=== PATIENT | female | born 1940 | race Hispanic/Latino ===

== ENCOUNTER 2017-09-19 14:00 | Emergency (ER) | payer MEDICARE, MEDICAID ==
--- NOTE | 2017-09-19 16:08 | RAD ---
TWO VIEWS RIGHT HIP: Comparison: None. History: Right hip pain after injury. FINDINGS: Two views right hip shows no evidence of acute fracture or dislocation. No degenerative changes are s een. Vascular calcifications are present. IMPRESSION: No evidence of acute osseous abnormality. POS: [facility]
[2017-09-19 16:24] LABS: #Lymphocytes 0.8 thou/uL (1.20-3.40); #Monocytes 0.8 thou/uL (0.11-0.59); #Neutrophils 6.4 thou/uL (1.40-6.50); %Basophils 0.3 % (0.0-1.0); %Eosinophils 0.1 % (0.0-10.0); %Lymphocytes 10.4 % (21.0-51.0); %Monocytes 10.3 % (0.0-10.0); Hematocrit 34.2 % (36.0-47.0); Mean Platelet Volume 8.4 fL (7.4-10.4); Red Blood Cell (RBC) Count 3.38 mill/uL (4.20-5.40); White Blood Cell (WBC) Count 8.1 thou/uL (4.8-10.8)
[2017-09-19 16:45] LABS: ALT (SGPT) 20 U/L (8-55); AST (SGOT) 29 U/L (5-34); Alkaline Phosphatase 98 U/L (40-150); Anion Gap 17 mmol/L (10-20); BUN (Urea Nitrogen) 40 mg/dL (9.8-20.1); Bilirubin, Total 0.9 mg/dL (0.2-1.2); Calc. Creatinine Clearance 0 mL/min (70-130); Carbon Dioxide 29 mmol/L (23-31); Chloride 94 mmol/L (98-107); Estimated GFR-MDRD 10; Globulin 4.3 g/dL (2.4-3.5); Lipase 42 U/L (8-78); Protein, Total 8.5 g/dL (6.0-8.3)
[2017-09-19] MEDS ORDERED: Ketorolac Tromethamine 30 MG/ML VIAL ONE (17:32)
== END 2017-09-19 18:01 | disposition home or self-care (01) ==
LOC: ERS 14:00
DX: M25.551 Pain in right hip (principal); E11.22 Type 2 diabetes mellitus with diabetic chronic kidney disease; I12.0 Hypertensive chronic kidney disease with stage 5 chronic kidney disease or end stage renal disease; N18.6 End stage renal disease; E78.5 Hyperlipidemia, unspecified; F32.9 Major depressive disorder, single episode, unspecified; Z99.2 Dependence on renal dialysis
CPT/HCPCS: 36415; 80053; 83690; 85025; 96372; J1885

== ENCOUNTER 2018-02-09 20:24 | Emergency (ER) | payer MEDICARE, MEDICAID ==
[2018-02-09 20:56] LABS: #Eosinphils 0.1 thou/uL (0.0-0.7); #Lymphocytes 1.1 thou/uL (1.20-3.40); #Monocytes 0.6 thou/uL (0.11-0.59); #Neutrophils 4.1 thou/uL (1.40-6.50); %Basophils 0.4 % (0.0-1.0); %Eosinophils 0.9 % (0.0-10.0); %Lymphocytes 18.1 % (21.0-51.0); %Monocytes 10.3 % (0.0-10.0); %Neutrophils 70.3 % (42.0-75.0); Hemoglobin 11.2 g/dL (12.0-16.0); Mean Corpuscular HGB CONC 32.6 g/dL (32.0-36.0); Mean Corpuscular Hemoglobin 32.4 pg (27.0-31.0); Mean Corpuscular Volume 99.3 fl (81.0-99.0); Mean Platelet Volume 8.3 fL (7.4-10.4); Platelet Count 119 thou/uL (130-400); RBC Distribution Width 14.9 % (11.5-14.5); Red Blood Cell (RBC) Count 3.47 mill/uL (4.20-5.40); White Blood Cell (WBC) Count 5.8 thou/uL (4.8-10.8)
[2018-02-09 21:16] LABS: ALT (SGPT) 17 U/L (8-55); AST (SGOT) 31 U/L (5-34); Albumin 4.1 g/dL (3.4-4.8); Alkaline Phosphatase 101 U/L (40-150); Anion Gap 17 mmol/L (10-20); BUN (Urea Nitrogen) 53 mg/dL (9.8-20.1); Calc. Creatinine Clearance 0 mL/min (70-130); Calcium 9.9 mg/dL (7.8-10.44); Carbon Dioxide 32 mmol/L (23-31); Chloride 94 mmol/L (98-107); Estimated GFR-MDRD 7; Globulin 3.8 g/dL (2.4-3.5); Glucose 155 mg/dL (83-110); Lipase 63 U/L (8-78); Potassium 4.7 mmol/L (3.5-5.1); Protein, Total 7.9 g/dL (6.0-8.3); Sodium 138 mmol/L (136-145)
[2018-02-09] MEDS ORDERED: Ondansetron ODT 4 MG TAB ONE (23:13)
[2018-02-09] MEDS ORDERED: Dicyclomine 20 MG TAB ONE (23:13)
== END 2018-02-10 00:43 | disposition home or self-care (01) ==
LOC: ERS 20:24
DX: R19.7 Diarrhea, unspecified (principal); I12.0 Hypertensive chronic kidney disease with stage 5 chronic kidney disease or end stage renal disease; N18.6 End stage renal disease; Z99.2 Dependence on renal dialysis; E11.9 Type 2 diabetes mellitus without complications; E78.5 Hyperlipidemia, unspecified; F32.9 Major depressive disorder, single episode, unspecified; Z79.899 Other long term (current) drug therapy
CPT/HCPCS: 80053; 83605; 83690; 85025; 96360; Q0162

== ENCOUNTER 2018-02-24 08:02 | Emergency (ER) | payer MEDICARE, MEDICAID ==
[~2018-02-24 08:02] MED LIST: Iopamidol 370 76% 50 ML VIAL FS ONE
[2018-02-24 08:53] LABS: #Monocytes 0.6 thou/uL (0.11-0.59); #Neutrophils 3.8 thou/uL (1.40-6.50); %Basophils 0.4 % (0.0-1.0); %Eosinophils 0.7 % (0.0-10.0); %Lymphocytes 17.7 % (21.0-51.0); %Monocytes 10.4 % (0.0-10.0); %Neutrophils 70.8 % (42.0-75.0); Hemoglobin 12.1 g/dL (12.0-16.0); Mean Corpuscular Hemoglobin 32.9 pg (27.0-31.0); Mean Corpuscular Volume 99.6 fl (81.0-99.0); Mean Platelet Volume 8.5 fL (7.4-10.4); Platelet Count 108 thou/uL (130-400); RBC Distribution Width 14.6 % (11.5-14.5); Red Blood Cell (RBC) Count 3.67 mill/uL (4.20-5.40); White Blood Cell (WBC) Count 5.4 thou/uL (4.8-10.8)
[2018-02-24 09:12] LABS: ALT (SGPT) 16 U/L (8-55); AST (SGOT) 28 U/L (5-34); Albumin 4.1 g/dL (3.4-4.8); Alkaline Phosphatase 97 U/L (40-150); Anion Gap 14 mmol/L (10-20); BUN (Urea Nitrogen) 48 mg/dL (9.8-20.1); Calc. Creatinine Clearance 0 mL/min (70-130); Calcium 9.8 mg/dL (7.8-10.44); Carbon Dioxide 32 mmol/L (23-31); Chloride 93 mmol/L (98-107); Estimated GFR-MDRD 7; Globulin 3.9 g/dL (2.4-3.5); Glucose 136 mg/dL (83-110); Potassium 5.1 mmol/L (3.5-5.1); Sodium 134 mmol/L (136-145)
--- NOTE | 2018-02-24 11:29 | CT ---
NONCONTRAST ENHANCED CT IMAGES ABDOMEN AND PELVIS: HISTORY: Abdominal pain. History of melena, hematochezia, vomiting. FINDINGS: Noncontrast-enhanced CT images of the abdomen and pelvis obtained after administration of oral contra st. Cardiomegaly is seen. Pulmonary vascular congestion is seen. A small amount of free intraperitoneal fluid is seen. The liver and spleen are unremarkable. A small hiatal hernia is seen. The gallbladder contains areas of hyperdensity compatible with numerous gallstones. There may be coral e gallbladder wall thickening. The pancreas is unremarkable. There is atrophy of both kidneys. No evidence of periaortic lymphadenopathy seen. There is some thickening and surrounding fluid surrounding the descending colon. This may represent colitis and/or diverticulitis. IMPRESSION: 1. Cholelithiasis. 2. Small amount of free intraperitoneal fluid. 3. Inflammatory change surrounding the portions of the descending colon. Differential diagnosis inc ludes colitis versus diverticulitis. POS: [facility]
[2018-02-24] MEDS ORDERED: Ciprofloxacin 500 MG TAB ONE (11:44)
[2018-02-24] MEDS ORDERED: metroNIDAZOLE 250 MG TAB ONE (11:44)
== END 2018-02-24 13:25 | disposition home or self-care (01) ==
LOC: ERS 08:02
DX: R19.7 Diarrhea, unspecified (principal); H54.7 Unspecified visual loss; E78.5 Hyperlipidemia, unspecified; I12.0 Hypertensive chronic kidney disease with stage 5 chronic kidney disease or end stage renal disease; E11.22 Type 2 diabetes mellitus with diabetic chronic kidney disease; N18.6 End stage renal disease; Z99.2 Dependence on renal dialysis; F32.9 Major depressive disorder, single episode, unspecified; Z79.84 Long term (current) use of oral hypoglycemic drugs; Z79.899 Other long term (current) drug therapy
CPT/HCPCS: 36415; 74176; 80053; 83605; 85025

== ENCOUNTER 2018-08-01 11:15 | Inpatient (IN) | payer MEDICARE, MEDICAID ==
[2018-08-01 12:19] LABS: #Lymphocytes 0.7 thou/uL (1.20-3.40); #Monocytes 0.4 thou/uL (0.11-0.59); #Neutrophils 3.6 thou/uL (1.40-6.50); %Basophils 0.3 % (0.0-1.0); %Eosinophils 0.7 % (0.0-10.0); %Lymphocytes 14.9 % (21.0-51.0); %Neutrophils 76.2 % (42.0-75.0); Hemoglobin 11.8 g/dL (12.0-16.0); Mean Corpuscular HGB CONC 31.6 g/dL (32.0-36.0); Mean Corpuscular Hemoglobin 34.2 pg (27.0-31.0); Mean Platelet Volume 10.3 fL (7.4-10.4); Platelet Count 151 thou/uL (130-400); Red Blood Cell (RBC) Count 3.45 mill/uL (4.20-5.40); White Blood Cell (WBC) Count 4.8 thou/uL (4.8-10.8)
[2018-08-01 12:39] LABS: ALT (SGPT) 12 U/L (8-55); AST (SGOT) 36 U/L (5-34); Albumin 3.9 g/dL (3.4-4.8); Alkaline Phosphatase 84 U/L (40-150); Anion Gap 17 mmol/L (10-20); Anisocytosis SLIGHT = 6-15 cells (100X) (0-5/hpf); BUN (Urea Nitrogen) 14 mg/dL (9.8-20.1); Bilirubin, Total 1.4 mg/dL (0.2-1.2); CK (CPK) 59 U/L (29-168); Calc. Creatinine Clearance 0 mL/min (70-130); Calcium 8.8 mg/dL (7.8-10.44); Carbon Dioxide 28 mmol/L (23-31); Chloride 99 mmol/L (98-107); Elliptocytes SLIGHT = 2-5 cells (100X) (0-1/hpf); Estimated GFR-MDRD 16; Glucose 169 mg/dL (83-110); MDiff Complete? YES; Ovalocytes SLIGHT = 2-5 cells (100X) (0-1/hpf); PLT Morphology Comment Appears Adequate; Poikilocytosis SLIGHT = 6-15 cells (100X) (0-5/hpf); Polychromasia SLIGHT = 2-3 cells (100X) (0-2/hpf); Potassium 4.3 mmol/L (3.5-5.1); Protein, Total 7.9 g/dL (6.0-8.3); Schistocytes SLIGHT = 2-5 cells (100X) (0-1/hpf); Sodium 140 mmol/L (136-145)
[2018-08-01 12:43] LABS: CKMB 1.5 ng/mL (0-6.6); Troponin I 0.011 ng/mL (< 0.028)
--- NOTE | 2018-08-01 13:29 | RAD ---
SINGLE VIEW OF THE CHEST: Comparison: 11-13-16 History: Difficulty breathing. FINDINGS: Single view of the chest shows an enlarged but stable cardiomediastinal silhouette. The pacemaker is unchanged in position. There is no evidence of consolidation, mass, or pleural effusion. IMPRESSION: Cardiomegaly without evidence of acute cardiopulmonary disease. POS: [facility]
--- NOTE | 2018-08-01 14:08 | PDOC.FPRHP ---
- History of Present Illness Chief Complaint: SOB History of Present Illness: Ms Sena is a 77yo female with pmh of ESRD on HD MWF, afib with pacemaker, HTN , HLD, DMII presenting with SOB that started gradually after she began receiving dialysis today. Compliance Spec is Dr Dye. Son reports they usually pull off 1.6L of fluid but last week they took off double. She has never had this SOB before. Unsure if it is worse with exertion as she has not exerted herself, denies orthopnea. Denies cough, fevers, chills, chest pain. Reports lower leg edema over the last 2 weeks that is new. She also reports abdominal bloating for the past month that she visited her PCP for and was prescribed simethicone that provided no relief. She denies abdominal pain and had a normal BM this AM. She follows up with Dr Reveles, Cardiology for her afib with pacemaker. - Allergies/Adverse Reactions Allergies Allergy/AdvReac Type Severity Reaction Status Date / Time No Known Allergies Allergy Verified 06/14/14 00:49 - Home Medications Medication Instructions Recorded Confirmed Type Calcium Acetate 667 mg PO TID-WM 03/13/14 08/01/18 History glipiZIDE [glipiZIDE ER] 2.5 mg PO QAM- 06/14/14 08/01/18 History Atorvastatin Calcium [Lipitor] 40 mg PO DAILY 05/31/15 08/01/18 History Mirtazapine 15 mg PO HS 05/31/15 08/01/18 History Ondansetron [Zofran ODT] 4 mg PO Q6H PRN #0 tab 06/01/15 08/01/18 Rx hydrALAZINE HCl [Apresoline] 50 mg PO TID #0 tab 06/01/15 08/01/18 Rx Amlodipine [Norvasc] 10 mg PO QAM 08/01/18 08/01/18 History Carvedilol [Coreg] 6.25 mg PO BID 08/01/18 08/01/18 History Folic Acid/Vit B Complex and C 1 tab PO QAM 08/01/18 08/01/18 History [Dialyvite 800] - History PMHx: ESRD on HD, HTN, HLD, DMII, Depression, Afib with pacemaker, vision impairment PSHx: C/S x2, Cataract, Fistula placement, Pacemaker placement FHx: Father- Parkinson like disease, Mother- Cancer Social: Denies tobacco, alcohol or drug use. - Review of Systems General: reports: weight/appetite/sleep changes (decreased appetite). denies: fever/chills Eyes: denies: eye pain, vision changes ENT: denies: nasal congestion, rhinorrhea Respiratory: reports: shortness of breath. denies: cough Cardiovascular: reports: edema. denies: chest pain, paroxysmal nocturnal dyspnea, orthopnea Gastrointestinal: denies: nausea, vomiting, diarrhea, constipation, abdominal pain Genitourinary: denies: dysuria Skin: denies: rashes, lesions Musculoskeletal: denies: pain, swelling Neurological: denies: numbness, weakness - Vital signs BP: 151/86 HR: 88 RR: 20 Tmax: 97.7 Pox: 98% on 2L Wt: 86.2kg - Physical Exam Constitutional: NAD, awake, alert and oriented, well developed HEENT: normocephalic and atraumatic, MMM, oropharynx clear Neck: supple, trachea midline Heart: no murmurs/rubs/gallops, pulses present (dorsalis pedis and radial 2+), other (irregular rate and rhythm) Lungs: CTAB, no wheezing Abdomen: soft, non-tender, bowel sounds present, other (distended, no fluid wave ) Musculoskeletal: normal structure Skin: no rash/lesions, capillary refill <2 seconds Psychiatric: normal mood and affect, good judgment and insight, intact recent and remote memory FMR H&P: Results - Labs Result Diagrams: 08/01/18 11:30 08/01/18 11:30 Lab results: WBC 4.8 thou/uL (4.8-10.8) 08/01/18 11:30 Hgb 11.8 g/dL (12.0-16.0) L 08/01/18 11:30 Hct 37.3 % (36.0-47.0) 08/01/18 11:30 MCV 108.0 fL (78.0-98.0) H 08/01/18 11:30 Plt Count 151 thou/uL (130-400) 08/01/18 11:30 Neutrophils % 76.2 % (42.0-75.0) H 08/01/18 11:30 Sodium 140 mmol/L (136-145) 08/01/18 11:30 Potassium 4.3 mmol/L (3.5-5.1) 08/01/18 11:30 Chloride 99 mmol/L (98-107) 08/01/18 11:30 Carbon Dioxide 28 mmol/L (23-31) 08/01/18 11:30 BUN 14 mg/dL (9.8-20.1) 08/01/18 11:30 Creatinine 2.80 mg/dL (0.6-1.1) H 08/01/18 11:30 Glucose 169 mg/dL (83-110) H 08/01/18 11:30 Calcium 8.8 mg/dL (7.8-10.44) 08/01/18 11:30 Total Bilirubin 1.4 mg/dL (0.2-1.2) H 08/01/18 11:30 AST 36 U/L (5-34) H 08/01/18 11:30 ALT 12 U/L (8-55) 08/01/18 11:30 Alkaline Phosphatase 84 U/L (40-150) 08/01/18 11:30 Creatine Kinase 59 U/L (29-168) 08/01/18 11:30 CK-MB (CK-2) 1.5 ng/mL (0-6.6) 08/01/18 11:30 B-Natriuretic Peptide 700.7 pg/mL (0-100) H 08/01/18 11:30 Serum Total Protein 7.9 g/dL (6.0-8.3) 08/01/18 11:30 Albumin 3.9 g/dL (3.4-4.8) 08/01/18 11:30 - EKG Interpretation EKG: Afib with controlled ventricular response, with no ectopics, Conduction normal, ST segments normal, T waves normal, Jackson normal, Other findings include:, prolonged QTc, low voltage QRS. - Radiology Interpretation Chest x-ray Status: report reviewed by me Additional comment: Cardiomegaly FMR H&P: A/P - Problem List (1) Afib Current Visit: Yes Status: Acute Code(s): I48.91 - UNSPECIFIED ATRIAL FIBRILLATION (2) Anemia Current Visit: No Status: Acute Code(s): D64.9 - ANEMIA, UNSPECIFIED (3) Diabetic gastroparesis Current Visit: No Status: Acute Code(s): E11.43 - TYPE 2 DIABETES W DIABETIC AUTONOMIC (POLY)NEUROPATHY; K31.84 - GASTROPARESIS (4) Hypertension Current Visit: No Status: Acute Code(s): I10 - ESSENTIAL (PRIMARY) HYPERTENSION (5) Blindness of right eye Current Visit: No Status: Chronic Code(s): H54.41 - BLINDNESS, RIGHT EYE, NORMAL VISION LEFT EYE * DO NOT USE * (6) End stage renal disease on dialysis Current Visit: No Status: Chronic Code(s): N18.6 - END STAGE RENAL DISEASE; Z99.2 - DEPENDENCE ON RENAL DIALYSIS (7) Hyperlipemia Current Visit: No Status: Chronic Code(s): E78.5 - HYPERLIPIDEMIA, UNSPECIFIED (8) Type 2 diabetes mellitus Current Visit: No Status: Chronic - Plan Shortness of Breath - DDx: Volume overloaded vs new CHF vs ACS - Heart Score: 4 - Troponin neg x1, will continue to trend - BNP elevated at 700 - Last Echo 2013, nml EF - EKG with ST segment changes - Echo ordered - Fluid restriction, daily wts, strict I&Os - Consider getting stress test, will trend troponins and repeat EKG for chest pain at this point as symptoms are more consistent with CHF than ACS - Will admit to tele for observation ESRD on HD MWF - Sees Dr Dye outpt, has been notified - Avoid nephrotoxic medications Afib with pacemaker - Rate controlled - Continue home meds - Requested records from Dr Reveles's office Hyperbilirubenima - Possibly due to hepatic congestion - Continue to trend labs Transaminitis - Possibly due to hepatic congestion - Continue to trend labs DMII - Accuchecks ACHS - Mild SSI - Hypoglycemic protocol HTN - Continue home meds HLD - Continue home meds Depression - Continue home meds Code Status: FULL DVT ppx: Heparin FMR H&P: Upper Level - Pertinent history Chris Sena is a 77 year old Female with a history of ESRD on hemodialysis MWF who presents to the ED with sudded onset dyspnea that began during dialysis this morning. Pt was bothered so much by the dyspnea that she could not finish dialysis and was directed to the emergency department. Pt's son who was present in the room states that Dr. Dye recommended that pt make an appointment with Dr. Reveles soon due to pt's lower extremity edema and abdominal swelling to rule out possible cardiac etiology. - Pertinent findings Vitals: 88% on RA on arrival to ED. Pt currently satting 100% on 2L. Physical Exam: General: alert and oriented; in no apparent distress. Heart: irregularly irregular rhythm; no murmurs, rubs, or gallops. Lungs: clear to auscultation bilaterally. no crackles, wheezes, or rhonchi. Abdomen: Normoactive bowel sounds. softly distended; tympany present; Non- tender to palpation. Extremities: bilateral lower extremities with taut edema; no pitting. - Plan Date/Time: 08/01/18 1407 I,Cira Richter, have evaluated this patient and agree with findings/plan as outlined by university internship resident. Pertinent changes/additions are listed here. Acute Dyspnea - differentials include: volume overload from ESRD vs. new diagonosis of heart failure. - last available echo from 07/2014 is normal. - BNP does not appear to be elevated from baseline. - CXR unremarkable for pulmonary congestion/effusion - will order echo, trend troponins ESRD on HD on MWF. - Dr. Dye notified. - continue hemodialysis schedule - avoid nephrotoxic medications. Abdominal bloating - On review of clinic charts, pt has had this symptoms since 2016 - possibly related to volume overload/fluid shifts from dialysis or may be related to increased bowel gas - will check echo. - consider abdominal US. - continue simethicone, will also try Bentyl. Atrial fibrillation - rate controlled. - continue to monitor. Continue home medications. - not on ASA at home, consider starting after discussing with pt and family. Hyperlipidemia - continue statin. DM - continue home medication. - last A1C in clinic 6.3% in February 2018. Well-controlled at that time. may re- check A1C outpatient.
[2018-08-01] MEDS ORDERED: Acetaminophen 325 MG TAB PO PRN (15:30)
[2018-08-01] MEDS ORDERED: Enoxaparin Sodium 30 MG/0.3 ML SYRINGE SC SCH (15:30)
[2018-08-01] MEDS ORDERED: HumaLOG 300 UNITS/3 ML VIAL SC PRN (15:30)
[2018-08-01] MEDS ORDERED: Dextrose 50% Abboject 50 ML SYRINGE SLOW IVP PRN (15:30)
[2018-08-01] MEDS ORDERED: Dextrose 5% in Water 1,000 ML IV PRN (15:30)
[2018-08-01] MEDS ORDERED: Ondansetron ODT 4 MG TAB PO PRN ×2 (15:30→17:32)
[2018-08-01 17:22] VITALS: BMI 28.5
--- NOTE | 2018-08-01 17:55 | PDOC.EVN ---
Event Note - Event Note Event Note: Case discussed with Dr. Harris and agree with history,exam, assessment and plan as documented by the resident- 77 yo male with h/o type 2 DM, ESRD on HD, chronic a-fib rate controlled, HTN, HLD presented c/o SOB that began when she was starting dialysis today. Has now improved; did complete her dialysis session. Family also notes increased lower extremity swelling and abdominal bloating for the last 2-3 weeks. Denies any fever/chills, cough, URI symptoms. No ill contacts. Denies any chest pain or orthopnea. PMH/PSH/All/Meds reviewed and agree with resident's documentation. Afebrile VSS. Exam repeated by me and agree with resident's findings. Labs: H/H = 11.7/38.3, BUN/Cr = 14/2.80, BNP= 700.7, EKG- a-fib rate controlled, CXR- cardiomegaly, no other acute findings. A /P: 1) Dyspnea/Hypoxia- on O2 to maintain saturations; possible etiologies can include new onset CHF, ACS, volume overload. Will check echo, serial cardiac enzymes. 2) Abdominal bloating- possibly secondary to volume overload; consider abdominal ultrasound. 3) ESRD- nephrology notified and will arrange for HD. 4) DM- continue accuchecks and home meds.
[2018-08-01 18:56] LABS: Troponin I 0.017 ng/mL (< 0.028)
[2018-08-01] MEDS ORDERED: Mirtazapine 15 MG TAB PO SCH (21:00)
[2018-08-01] MEDS: Dicyclomine 10 MG CAP PO SCH ×2 (21:36→21:39)
[2018-08-01] MEDS: Carvedilol 6.25 MG TAB PO SCH (21:38)
[2018-08-01] MEDS: hydrALAZINE 25 MG TAB PO SCH (21:39)
[2018-08-01] MEDS: Heparin 5,000 UNITS/ML VIAL SC SCH (21:39)
--- NOTE | 2018-08-02 00:27 | CON ---
DATE OF CONSULTATION: 08/01/2018 NEPHROLOGY CONSULTATION REASON FOR CONSULTATION: End-stage renal disease. HISTORY OF PRESENT ILLNESS: This is a 77-year-old female who had dyspnea and was noted to have short ness of breath. The patient denies any nausea, vomiting or chest pain, but is requiring oxygen, whic h she does not require. The patient is also complaining of ascites. PAST MEDICAL HISTORY: Hypertension, diabetes mellitus, anemia, congestive heart failure, coronary ar roger disease, depression, atrial fibrillation with pacemaker, cataract, fistula placement. HOME MEDICATIONS: Reviewed. HOSPITAL MEDICATIONS: Reviewed. ALLERGIES: Reviewed. REVIEW OF SYSTEMS: A 15-point review of systems was performed and was negative except for positives noted above. GENERAL: Weakness- HEAD: Headache- NECK: No swelling or lumps. NOSE: No epistaxis or discharge. EYES: No diplopia or pain. RESPIRATORY: Dyspnea- CARDIOVASCULAR: Chest pain- GASTROINTESTINAL: Nausea- /EXTERMINATOR TERMITE: Hematuria- MUSCULOSKELETAL: No joint pain. NEUROPSYCHIATIC SYSTEMS: No suicidal ideation. No ideation. SKIN: Denies any rash or ulcer. CONSTITUTIONAL: No fever or chills. PHYSICAL EXAMINATION: GENERAL: Patient is awake, alert. VITAL SIGNS: Pulse 88, breathing 16, blood pressure 151/86. HEAD/NECK: Normocephalic. Atraumatic. EYES: EOMI. No deformity. EARS: Clear. No ulcers. NOSE: Intact. No lesions. MOUTH: Clear. No discharge. THROAT: Clear. No exudate. LUNGS: Clear. No crackles. CARDIAC: S1, S2. No rub. ABDOMEN: Benign. BS+. GENITALIA/RECTUM: Jackson absent. BACK/EXTREMITIES: Edema 0+ Ulcer- NEUROLOGICAL: Alert and motor intact. SKIN: Rash- Bruise- LYMPHATICS: Edema- Ulcer- LABORATORY DATA: Show potassium is 4.3. ASSESSMENT AND RECOMMENDATIONS: 1. Stage 6 chronic kidney disease with congestive heart failure. Plan hemodialysis . 2. Hypertension, stable. 3. Anemia, stable. 4. Medications based on glomerular filtration rate are appropriate .
--- NOTE | 2018-08-02 05:51 | PDOC.FM ---
- Subjective Subjective: Ms Sena is feeling much better today. Less short of breath. Abdominal bloating has improved. She does complain of some eye pruritis and eye exudate matted on eye lids this morning. She does have hx of allergies that have been bothering her more recently. - Objective MAR Reviewed: Yes Vital Signs & Weight: Vital Signs (12 hours) Temp Pulse Resp BP Pulse Ox 08/02/18 03:59 98.8 F 69 16 98/50 L 97 08/01/18 21:39 74 08/01/18 20:30 98.1 F 69 16 133/60 98 Weight Weight 64.229 kg Result Diagrams: 08/01/18 11:30 08/02/18 04:44 <Tish Harris - Last Filed: 08/02/18 10:01> - Objective Vital Signs & Weight: Vital Signs (12 hours) Temp Pulse Resp BP BP Pulse Ox 08/02/18 08:47 75 08/02/18 08:46 75 08/02/18 08:37 98.4 F 75 14 101/49 L 97 08/02/18 03:59 98.8 F 69 16 98/50 L 97 Weight Weight 62.868 kg Result Diagrams: 08/01/18 11:30 08/02/18 04:44 <Robby Smith - Last Filed: 08/02/18 10:27> Phys Exam - Physical Examination Constitutional: NAD Mild drainage matted on upper eyelashes. Cornea clouding, b/l conjunctiviti Neck: supple Respiratory: no wheezing, clear to auscultation bilateral Cardiovascular: RRR, no significant murmur Gastrointestinal: soft, non-tender, positive bowel sounds Musculoskeletal: edema present Psychiatric: normal affect, A&O x 3 Skin: cap refill <2 seconds <Tish Harris - Last Filed: 08/02/18 10:01> Dx/Plan (1) Afib Code(s): I48.91 - UNSPECIFIED ATRIAL FIBRILLATION Status: Acute (2) Anemia Code(s): D64.9 - ANEMIA, UNSPECIFIED Status: Acute (3) Diabetic gastroparesis Code(s): E11.43 - TYPE 2 DIABETES W DIABETIC AUTONOMIC (POLY)NEUROPATHY; K31.84 - GASTROPARESIS Status: Acute (4) Hypertension Code(s): I10 - ESSENTIAL (PRIMARY) HYPERTENSION Status: Acute (5) Blindness of right eye Code(s): H54.41 - BLINDNESS, RIGHT EYE, NORMAL VISION LEFT EYE * DO NOT USE * Status: Chronic (6) End stage renal disease on dialysis Code(s): N18.6 - END STAGE RENAL DISEASE; Z99.2 - DEPENDENCE ON RENAL DIALYSIS Status: Chronic (7) Hyperlipemia Code(s): E78.5 - HYPERLIPIDEMIA, UNSPECIFIED Status: Chronic (8) Type 2 diabetes mellitus Status: Chronic - Plan Plan: Shortness of Breath - DDx: Volume overloaded 2/2 ESRD vs new CHF - Troponin neg x2, CKMB neg - BNP elevated at 700 - Last Echo 2013, nml EF - EKG with ST segment changes - Fluid restriction, daily wts, strict I&Os - Echo today - Consider getting stress test, will trend troponins and repeat EKG for chest pain at this point as symptoms are more consistent with CHF than ACS Conjunctivitis - Likely allergic - Will add Flonase ESRD on HD MWF - Sees Dr Dye outpt, has been notified - Avoid nephrotoxic medications Afib with pacemaker - Rate controlled - Continue home meds - Requested records from Dr Reveles's office Hyperbilirubenima - Possibly due to hepatic congestion - Continue to trend labs Transaminitis - Possibly due to hepatic congestion - Continue to trend labs DMII - Accuchecks ACHS - Mild SSI - Hypoglycemic protocol HTN - Continue home meds HLD - Continue home meds Depression - Continue home meds Code Status: FULL DVT ppx: Heparin <Tish Harris - Last Filed: 08/02/18 10:01> Attending Addendum - Attending Addendum Date/Time: 08/02/18 1026 I personally evaluated the patient and discussed the management with Dr. Harris. I agree with the History, Examination, Assessment and Plan documented above with any addition or exceptions noted below. Patient feeling improved today. Less short of breath. Awaiting Echo to be completed. No plans for HD until Saturday unless her clinical progression changes. Will re-eval this afternoon but may be stable for discharge if ambulating well and not requiring supplemental O2. <Robby Smiht - Last Filed: 08/02/18 10:27>
[2018-08-02 06:08] LABS: ALT (SGPT) 10 U/L (8-55); AST (SGOT) 25 U/L (5-34); Albumin 3.4 g/dL (3.4-4.8); Alkaline Phosphatase 68 U/L (40-150); Anion Gap 13 mmol/L (10-20); BUN (Urea Nitrogen) 16 mg/dL (9.8-20.1); Bilirubin, Total 0.9 mg/dL (0.2-1.2); Calc. Creatinine Clearance 17 mL/min (70-130); Calcium 8.7 mg/dL (7.8-10.44); Carbon Dioxide 29 mmol/L (23-31); Chloride 100 mmol/L (98-107); Estimated GFR-MDRD 16; Globulin 3.6 g/dL (2.4-3.5); Glucose 107 mg/dL (83-110); Sodium 138 mmol/L (136-145)
[2018-08-02] MEDS ORDERED: Fluticasone Propionate Nasal Spray 16 gm Bottle NASAL PRN (07:42)
[2018-08-02] MEDS: Calcium Acetate 667 MG CAP PO SCH ×2 (08:46→12:21)
[2018-08-02] MEDS: Heparin 5,000 UNITS/ML VIAL SC SCH ×2 (08:46→15:52)
[2018-08-02] MEDS: hydrALAZINE 25 MG TAB PO SCH ×3 (08:46→15:52)
[2018-08-02] MEDS: Dicyclomine 10 MG CAP PO SCH ×2 (08:47→12:22)
[2018-08-02] MEDS: Amlodipine 10 MG TAB PO SCH ×2 (08:47→11:17)
[2018-08-02] MEDS: Carvedilol 6.25 MG TAB PO SCH (08:48)
[2018-08-02] MEDS ORDERED: Folic Acid/Vit B Comp W-C PO SCH (09:00)
[2018-08-02] MEDS ORDERED: Atorvastatin Calcium 40 MG TAB PO SCH (09:00)
[2018-08-02] MEDS ORDERED: Fluticasone Propionate Nasal Spray 16 gm Bottle NASAL SCH (09:00)
--- NOTE | 2018-08-02 11:53 | PRG ---
DATE OF SERVICE: 08/02/2018 SUBJECTIVE: This is a 77-year-old female being seen for end-stage renal disease. Patient denies any nausea, vomiting or chest pain. PHYSICAL EXAMINATION: GENERAL: Patient is awake, alert. VITAL SIGNS: Afebrile, pulse 75, breathing 16, blood pressure 98/56. HEAD/NECK: Normocephalic. Atraumatic. EYES: EOMI. No deformity. EARS: Clear. No ulcers. NOSE: Intact. No lesions. MOUTH: Clear. No discharge. THROAT: Clear. No exudate. LUNGS: Clear. No crackles. CARDIAC: S1, S2. No rub. ABDOMEN: Benign. BS+. GENITALIA/RECTUM: Jackson absent. BACK/EXTREMITIES: Edema 0+ Ulcer- NEUROLOGICAL: Alert and motor intact. SKIN: Rash- Bruise- LYMPHATICS: Edema- Ulcer- LABORATORY DATA: None. ASSESSMENT AND RECOMMENDATIONS: 1. Stage 6 chronic kidney disease, continue hemodialysis. 2. Hypertension, stable. Can decrease the hydralazine. Medications based on GFR are appropriate.
[2018-08-02 16:23] VITALS: BP 103/50; TEMP 97.6
--- NOTE | 2018-08-03 02:14 | DIS-2 ---
DATE OF ADMISSION: 08/01/2018 DATE OF DISCHARGE: 08/02/2018 RESIDENT: Tish Harris M.D. ADMITTING ATTENDING: Leidy Biggs M.D. DISCHARGE ATTENDING: Robby Smith M.D. CONSULTATIONS: None. PROCEDURES: 1. Chest x-ray: Cardiomegaly without evidence of acute cardiopulmonary disease. 2. Echocardiogram, ejection fraction 50%-55%, left atrium mildly dilated. Mitral annular calcification. Moderate mitral regurgitation. Moderate to severe tricuspid regurgitation. PRIMARY DIAGNOSES: 1. 2. End-stage renal disease. SECONDARY DIAGNOSES: 1. Allergic conjunctivitis. 2. End-stage renal disease on hemodialysis. 3. Atrial fibrillation with pacemaker. 4. Hyperbilirubinemia. 5. Transaminitis. 6. Type 2 diabetes. 7. Hypertension. 8. Hyperlipidemia. 9. Depression. DISCHARGE MEDICATIONS: 1. Calcium acetate 667 mg p.o. t.i.d. 2. Glipizide 2.5 mg q.a.m. 3. Mirtazapine 15 mg at bedtime. 4. Atorvastatin 40 mg daily. 5. Zofran 4 mg q.6 hours p.r.n. 6. Hydralazine 50 mg t.i.d. 7. Amlodipine 10 mg q.a.m. 8. Carvedilol 6.25 mg b.i.d. 9. Folic acid, vitamin B and C one tab q.a.m. 10. Bentyl 10 mg q.i.d. 11. Fluticasone 2 sprays nasally daily. DISCONTINUED MEDICATIONS: None. HISTORY OF PRESENT ILLNESS AND HOSPITAL COURSE: Ms. Sena is a 77-year-old female with past medical history of end-stage renal disease, on hemodialysis Saturday, Saturday, Saturday; atrial fibrillation with pacemaker; hypertension; hyperlipidemia; type 2 diabetes who presented with shortness of breath that began gradually after she started receiving dialysis. It is estimated that about 3 liters was pulled off a day per son. She has never had the shortness of breath before. Her BNP was 700.7. Troponin was negative. Echocardiogram was performed showing 50%-55% EF and moderate to severe tricuspid regurgitation. She was also noted to be hypoxic into the mid 80s at presentation, this resolved with 2 liters oxygen nasal cannula. She was weaned off the oxygen and was satting in the mid 90s that discharge. The patient complained of conjunctivitis. She has a history of allergies that have been worse over the past few weeks. Flonase was added to her medications. Her end-stage renal disease, on hemodialysis Saturday, Saturday, Saturday, is managed by Dr. Dye outpatient. He was notified the patient was hospitalized. The patient has atrial fibrillation with pacemaker placement. She was rate controlled throughout her hospitalization. Dr. Reveles, her application support engineer, was notified and she was continued on her home medications and stable. She was noted to have a mild hyperbilirubinemia, initially 36 down trended to 25 at discharge and an elevated bilirubin of 1.4 down trended to 0.9 at discharge. This could likely, it was possibly due to hepatic congestion. Her type 2 diabetes was stable throughout the hospitalization on medication. Although, patient is 77 years old and is at risk for hypoglycemia and other side effects on a sulfonylurea. The patient's other chronic medical conditions of hypertension, hyperlipidemia, and depression were managed with home medications. DISPOSITION: Stable. DISCHARGE INSTRUCTIONS: 1. Location: Home. 2. Diet: Heart healthy, consistent carbohydrates. 3. Activity: No restrictions. 4. Followup: Follow up with PCP within 3-7 days. SVETLANA
== END 2018-08-02 16:55 | disposition home or self-care (01) | DRG 291 ==
LOC: ERS 11:15 → 2NO 14:23
PROVIDERS: ADMIT Student in an Organized Health Care Education/Training Program; ATTEND Student in an Organized Health Care Education/Training Program
PROC: 5A1D70Z Performance of Urinary Filtration, Intermittent, Less than 6 Hours Per Day (ICD-10-PCS; principal; 2018-08-01)
DX: I13.2 Hypertensive heart and chronic kidney disease with heart failure and with stage 5 chronic kidney disease, or end stage renal disease (principal); N18.6 End stage renal disease; E11.22 Type 2 diabetes mellitus with diabetic chronic kidney disease; I50.9 Heart failure, unspecified; E11.43 Type 2 diabetes mellitus with diabetic autonomic (poly)neuropathy; K31.84 Gastroparesis; D63.1 Anemia in chronic kidney disease; E78.5 Hyperlipidemia, unspecified; I48.91 Unspecified atrial fibrillation; H54.61 Unqualified visual loss, right eye, normal vision left eye; Z99.2 Dependence on renal dialysis; F32.9 Major depressive disorder, single episode, unspecified; R74.0 Nonspecific elevation of levels of transaminase and lactic acid dehydrogenase [LDH]; H10.10 Acute atopic conjunctivitis, unspecified eye; I08.1 Rheumatic disorders of both mitral and tricuspid valves
CPT/HCPCS: 36415; 36416; 71045; 80053; 82550; 82553; 83880; 84484; 85025; 93005; 93306; J1644

== ENCOUNTER 2018-09-15 11:34 | Emergency (ER) | payer MEDICARE, MEDICAID ==
[2018-09-15 12:52] LABS: #Lymphocytes 0.8 thou/uL (1.20-3.40); #Monocytes 0.6 thou/uL (0.11-0.59); #Neutrophils 4.5 thou/uL (1.40-6.50); %Basophils 0.4 % (0.0-1.0); %Eosinophils 0.3 % (0.0-10.0); %Lymphocytes 13.4 % (21.0-51.0); %Monocytes 10.3 % (0.0-10.0); %Neutrophils 75.5 % (42.0-75.0); Hemoglobin 11.7 g/dL (12.0-16.0); Mean Corpuscular HGB CONC 32.4 g/dL (32.0-36.0); Mean Corpuscular Hemoglobin 34.7 pg (27.0-31.0); Mean Platelet Volume 8.4 fL (7.4-10.4); Platelet Count 181 thou/uL (130-400); RBC Distribution Width 14.2 % (11.5-14.5); Red Blood Cell (RBC) Count 3.36 mill/uL (4.20-5.40)
[2018-09-15 13:14] LABS: ALT (SGPT) 10 U/L (8-55); AST (SGOT) 25 U/L (5-34); Albumin 3.5 g/dL (3.4-4.8); Alkaline Phosphatase 79 U/L (40-150); Anion Gap 18 mmol/L (10-20); BUN (Urea Nitrogen) 32 mg/dL (9.8-20.1); Bilirubin, Total 1.1 mg/dL (0.2-1.2); Calc. Creatinine Clearance 0 mL/min (70-130); Calcium 9.6 mg/dL (7.8-10.44); Carbon Dioxide 30 mmol/L (23-31); Chloride 95 mmol/L (98-107); Estimated GFR-MDRD 8; Globulin 4.2 g/dL (2.4-3.5); Glucose 146 mg/dL (83-110); Lipase 57 U/L (8-78); Potassium 5.6 mmol/L (3.5-5.1); Protein, Total 7.7 g/dL (6.0-8.3); Sodium 137 mmol/L (136-145)
[2018-09-15] MEDS ORDERED: Ondansetron PF 4 MG/2 ML Vial ONE (16:05)
--- NOTE | 2018-09-15 16:35 | ULT ---
LEFT UPPER EXTREMITY VASCULAR ULTRASOUND: Date: 09/15/18 INDICATION: History of left upper extremity shunt/fistula. Evaluate for patency & flow. TECHNIQUE: Birch scale and Doppler color flow imaging performed. FINDINGS: The region of patient's vascular shunt/fistula of the left upper extremity reveals flow. Venous and a rterial waveforms are documented. This is labeled as a location within the cephalic, brachial region. IMPRESSION: The interrogated site of fistula does reveal presence of flow with arterial and venous waveforms. POS: C
--- NOTE | 2018-09-17 15:11 | EKG ---
Test Reason : Blood Pressure : / mmHG Vent. Rate : 094 BPM Atrial Rate : 088 BPM P-R Int : 000 ms QRS Dur : 080 ms QT Int : 370 ms P-R-T Axes : 000 091 189 degrees QTc Int : 462 ms Atrial fibrillation Rightward axis Nonspecific ST and T wave abnormality Abnormal ECG Confirmed by MERE BLANCA ([id number]), state editor TODD MEREDITH ([id number]) on 09/17/2018 3:11:38 PM Referred By: Confirmed By:MERE BLANCA
== END 2018-09-15 16:37 | disposition home or self-care (01) ==
LOC: ERS 11:34
DX: E87.5 Hyperkalemia (principal); E11.22 Type 2 diabetes mellitus with diabetic chronic kidney disease; N18.6 End stage renal disease; E78.5 Hyperlipidemia, unspecified; I12.0 Hypertensive chronic kidney disease with stage 5 chronic kidney disease or end stage renal disease; I20.9 Angina pectoris, unspecified; Z87.01 Personal history of pneumonia (recurrent); F32.9 Major depressive disorder, single episode, unspecified; Z79.891 Long term (current) use of opiate analgesic; Z79.899 Other long term (current) drug therapy
CPT/HCPCS: 36415; 80053; 82550; 83690; 84484; 85025; 93005; 96374; J2405

== ENCOUNTER 2019-01-15 08:55 | Observation (INO) | payer MEDICARE, MEDICAID ==
[2019-01-15] MEDS ORDERED: Ondansetron PF 4 MG/2 ML Vial ONE (09:27)
[2019-01-15 10:15] LABS: INR-International Normal Ratio 1.2; Prothrombin Time 14.8 SEC (12.0-14.7)
[2019-01-15 10:24] LABS: #Lymphocytes 0.9 thou/uL (1.20-3.40); #Monocytes 0.5 thou/uL (0.11-0.59); #Neutrophils 2.8 thou/uL (1.40-6.50); %Basophils 0.8 % (0.0-1.0); %Eosinophils 0.5 % (0.0-10.0); %Lymphocytes 21.3 % (21.0-51.0); %Neutrophils 65.5 % (42.0-75.0); Hemoglobin 11.3 g/dL (12.0-16.0); Mean Corpuscular HGB CONC 31.3 g/dL (32.0-36.0); Mean Corpuscular Hemoglobin 33.7 pg (27.0-31.0); Mean Platelet Volume 8.8 fL (7.4-10.4); Platelet Count 159 thou/uL (130-400); Red Blood Cell (RBC) Count 3.36 mill/uL (4.20-5.40); White Blood Cell (WBC) Count 4.3 thou/uL (4.8-10.8)
[2019-01-15 10:33] LABS: MDiff Complete? YES; Microcytosis SLIGHT = 6-15 cells (100X) (0-5/hpf); Ovalocytes SLIGHT = 2-5 cells (100X) (0-1/hpf); Platelet Morphology Comment Appears Adequate; Polychromasia SLIGHT = 2-3 cells (100X) (0-2/hpf)
[2019-01-15 10:34] LABS: ALT (SGPT) 10 U/L (8-55); AST (SGOT) 21 U/L (5-34); Albumin 3.4 g/dL (3.4-4.8); Alkaline Phosphatase 53 U/L (40-150); Anion Gap 15 mmol/L (10-20); BUN (Urea Nitrogen) 17 mg/dL (9.8-20.1); Bilirubin, Total 0.7 mg/dL (0.2-1.2); Calc. Creatinine Clearance 0 mL/min (70-130); Calcium 9.2 mg/dL (7.8-10.44); Carbon Dioxide 31 mmol/L (23-31); Chloride 95 mmol/L (98-107); Estimated GFR-MDRD 14; Globulin 4.1 g/dL (2.4-3.5); Glucose 171 mg/dL (83-110); Lipase 41 U/L (8-78); Potassium 3.7 mmol/L (3.5-5.1); Protein, Total 7.5 g/dL (6.0-8.3); Sodium 137 mmol/L (136-145)
[2019-01-15 10:42] LABS: Bilirubin Small (Negative); Blood, Urine Moderate (Negative); Clarity TURBID (Clear); Glucose, Urine (Dipstick) 100 mg/dL (Negative); Leukocyte Large (Negative); Nitrite Positive (Negative); Protein, Urine (Dipstick) 300 mg/dL (Neg-Trace); Specific Gravity, Urine 1.023 (1.002-1.036); Urobilinogen 0.2 mg/dL (0.2-1.0)
[2019-01-15 10:44] LABS: Bacteria/HPF None Seen HPF (None Seen)
[2019-01-15 10:45] LABS: Pathc Cast-AUWi Flag 46.51 (0-2.49); Yeast-AUWi Flag 546.5 (0-25.0)
--- NOTE | 2019-01-15 10:59 | CT ---
Contrast-enhanced images abdomen and pelvis. HISTORY: 78-year-old with history of abdominal pain. Comparison made to previous exam from 02/24/2018. Areas of consolidation seen in the lingula compatible with areas of pneumonia. Extensive coronary artery vascular calcifications seen. There is interval development of a large collection of free intraperitoneal fluid. No evidence of free intraperitoneal air seen. The liver and spleen are unremarkable. There is reflux of injected contrast into the portal veins compatible with right heart failure. Extensive cholelithiasis is present. The small bowel and colon demonstrate no significant distention. Moderate amount stool seen in the co sebas. Atherosclerotic calcific effusion seen in the abdominal aorta. The pancreas is unremarkable. IMPRESSION: 1. Interval development of large amount of ascites. 2: Cholelithiasis.
[2019-01-15 11:01] LABS: Hyaline Casts/LPF 0-3 HYALINE CAST LPF (0-3 Hyaline); Renal Epithelial 0-3 HPF (0-3); Transitional Epithelial 0-3 HPF (0-3); WBC/HPF 21-50 HPF (0-3); Yeast-All Forms None Seen HPF (None Seen)
[2019-01-15] MEDS ORDERED: ISOVUE-370 76%-LOCM 1 ML ONE (13:54)
[2019-01-15] MEDS ORDERED: Ondansetron PF 4 MG/2 ML Vial IVP PRN (15:29)
[2019-01-15] MEDS ORDERED: Ondansetron ODT 4 MG TAB SL PRN (15:29)
[2019-01-15 16:18] VITALS: BMI 23.1
--- NOTE | 2019-01-15 16:28 | PDOC.EVN ---
Addendum - Attending - Attending Attestation Date/Time: 01/15/19 6792 I personally evaluated the patient and discussed the management with Dr. Hamilton/ Enzo I agree with the History, Examination, Assessment and Plan documented by science intern and resident in separate document. 78 yo Hemodialysis patient with new onset ascites. Patient denies fever chills she is becoming uncomfortable with fluid collection need to consider broad differential Liver,Cardiac, renal, infectious and malignant etiologies. Patient for diagnostic paracentesis and will consult GI in am if needed for further consideration. Dr Rich Wood Heel Flap Inserter is aware of her admission and will ask to follow along for inpatient HD etc. initial evaluation normal INR and LFT no evidence intra-abdominal thrombotic events will cover for SBP s/p paracentesis. Patient and son counseled to care plan.
[2019-01-15 16:49] LABS: BF Color Yellow; BF RBC Count - Manual 11 /cumm; BF WBC/Nonhematics Ct. - Manua 75 /cumm; Body Fluid Source Ascites Body Fluid; Clarity Hazy (Clear); Tube # EDTA
[2019-01-15] MEDS ORDERED: Ondansetron ODT 4 MG TAB PO PRN (16:58)
[2019-01-15] MEDS ORDERED: Acetaminophen 325 MG TAB PO PRN (17:02)
[2019-01-15] MEDS ORDERED: Prevnar 13-Val Conj/PF 0.5 ML SYRINGE IM ONE (17:15)
[2019-01-15 17:18] LABS: BF Segmented Neutrophils 1 %; Cell Count Non Hematic 62 %; Lymphocytes 37 %
--- NOTE | 2019-01-15 17:20 | PDOC.FPRHP ---
- History of Present Illness Chief Complaint: abdominal distention History of Present Illness: 78 yo F with PMH ESRD on HD MWF presents for increasing abdominal distention. Son notes that this distention as well as LE edema has been increasing for past 3-4 months. Patient's treasury assistant suggested cardiology referral and patient had appt scheduled for February 10. Last night patient had increased bloating along with N/V prompting her to come in. Patient lives in home with consistent family members caring for her. Ambulates with walker. ED Course: 1L, zofran - Allergies/Adverse Reactions Allergies Allergy/AdvReac Type Severity Reaction Status Date / Time No Known Allergies Allergy Verified 01/15/19 15:54 - Home Medications Medication Instructions Recorded Confirmed Type Calcium Acetate 3 tab PO TID-WM 03/13/14 01/15/19 History Atorvastatin Calcium [Lipitor] 40 mg PO DAILY 05/31/15 01/15/19 History Mirtazapine 15 mg PO HS 05/31/15 01/15/19 History Ondansetron [Zofran ODT] 4 mg PO Q6H PRN #0 tab 06/01/15 01/15/19 Rx hydrALAZINE HCl [Apresoline] 50 mg PO TID #0 tab 06/01/15 01/15/19 Rx Amlodipine [Norvasc] 10 mg PO QAM 08/01/18 01/15/19 History Carvedilol [Coreg] 6.25 mg PO BID 08/01/18 01/15/19 History Metoclopramide HCl [Metoclopramide 2.5 mg PO DAILY 01/15/19 01/15/19 History HCl Odt] - History PMHx: ESRD on HD MWF, angina, afib with pacemaker, blindness, HTN, HLD, DM2 PSHx: x2, cataract, dialysis shunt L arm, pacemaker FHx: unknown Social: No tobacco, alcohol, drug use. - Review of Systems General: denies: fever/chills Respiratory: denies: cough, shortness of breath Cardiovascular: denies: chest pain, palpitation Gastrointestinal: reports: nausea, vomiting, other (abdominal distention). denies: diarrhea Skin: denies: rashes Musculoskeletal: reports: swelling. denies: pain - Vital signs BP: 107/55 HR: 69 RR: 16 Tmax: 97.4 Pox: 94% on RA Wt: 55 kg - Physical Exam Constitutional: NAD HEENT: normocephalic and atraumatic, other (blindness) Neck: trachea midline Heart: RRR, normal S1/S2, other (systolic ejection murmur heard best at left sternal border) Lungs: CTAB, no respiratory distress Abdomen: non-tender, bowel sounds present, other (distended) Musculoskeletal: normal structure Neurological: no focal deficit Skin: no rash/lesions FMR H&P: Results - Labs Result Diagrams: 01/16/19 04:35 01/16/19 04:35 Lab results: WBC 4.3 thou/uL (4.8-10.8) L 01/15/19 10:01 Hgb 11.3 g/dL (12.0-16.0) L 01/15/19 10:01 Hct 36.2 % (36.0-47.0) 01/15/19 10:01 MCV 108.0 fL (78.0-98.0) H 01/15/19 10:01 Plt Count 159 thou/uL (130-400) 01/15/19 10:01 Neutrophils % 65.5 % (42.0-75.0) 01/15/19 10:01 Sodium 137 mmol/L (136-145) 01/15/19 10:01 Potassium 3.7 mmol/L (3.5-5.1) 01/15/19 10:01 Chloride 95 mmol/L (98-107) L 01/15/19 10:01 Carbon Dioxide 31 mmol/L (23-31) 01/15/19 10:01 BUN 17 mg/dL (9.8-20.1) 01/15/19 10:01 Creatinine 3.25 mg/dL (0.6-1.1) H 01/15/19 10:01 Glucose 171 mg/dL (83-110) H 01/15/19 10:01 Calcium 9.2 mg/dL (7.8-10.44) 01/15/19 10:01 Total Bilirubin 0.7 mg/dL (0.2-1.2) 01/15/19 10:01 AST 21 U/L (5-34) 01/15/19 10:01 ALT 10 U/L (8-55) 01/15/19 10:01 Alkaline Phosphatase 53 U/L (40-150) 01/15/19 10:01 B-Natriuretic Peptide 1188.3 pg/mL (0-100) H 01/15/19 16:14 Serum Total Protein 7.5 g/dL (6.0-8.3) 01/15/19 10:01 Albumin 3.4 g/dL (3.4-4.8) 01/15/19 10:01 Lipase 41 U/L (8-78) 01/15/19 10:01 Urine Ketones Trace mg/dL (Negative) H 01/15/19 10:29 Urine Blood Moderate (Negative) H 01/15/19 10:29 Urine Nitrite Positive (Negative) H 01/15/19 10:29 Ur Leukocyte Esterase Large (Negative) H 01/15/19 10:29 Urine RBC 7-10 HPF (0-3) H 01/15/19 10:29 Urine WBC 21-50 HPF (0-3) H 01/15/19 10:29 Ur Squamous Epith Cells 4-6 HPF (0-3) H 01/15/19 10:29 Urine Bacteria None Seen HPF (None Seen) 01/15/19 10:29 FMR H&P: A/P - Problem List (1) Ascites Current Visit: Yes Status: Acute Code(s): R18.8 - OTHER ASCITES (2) UTI (urinary tract infection) Current Visit: Yes Status: Acute (3) Blindness Current Visit: Yes Status: Chronic Code(s): H54.7 - UNSPECIFIED VISUAL LOSS (4) Afib Current Visit: Yes Status: Chronic Code(s): I48.91 - UNSPECIFIED ATRIAL FIBRILLATION (5) Anemia Current Visit: Yes Status: Chronic Code(s): D64.9 - ANEMIA, UNSPECIFIED (6) Diabetic gastroparesis Current Visit: Yes Status: Chronic Code(s): E11.43 - TYPE 2 DIABETES W DIABETIC AUTONOMIC (POLY)NEUROPATHY; K31.84 - GASTROPARESIS (7) Hypertension Current Visit: Yes Status: Chronic Code(s): I10 - ESSENTIAL (PRIMARY) HYPERTENSION (8) End stage renal disease on dialysis Current Visit: Yes Status: Chronic Code(s): N18.6 - END STAGE RENAL DISEASE ; Z99.2 - DEPENDENCE ON RENAL DIALYSIS (9) Hyperlipemia Current Visit: Yes Status: Chronic Code(s): E78.5 - HYPERLIPIDEMIA, UNSPECIFIED (10) Type 2 diabetes mellitus Current Visit: Yes Status: Chronic - Plan New onset ascitis - Ddx includes CHF, malignancy, hepatic etiology, infection - Paracentesis performed in ED 01/15, 1.7 L removed. Labs from this pending. - BNP 1188. Last echo 08/02/18 showed EF 50-55%. Pending echo. At this time CHF seems like more likely cause. - Liver enzymes normal, INR 1.2. UTI - UA with pos nitrites, large leuk esterase, high WBC, high RBC - urine culture pending - Continue ceftriaxone (01/15) ESRD on HD MWF - consulted nephrology Macrocytic anemia, chronic - Hgb at baseline though noted to be increasingly more macrocytic compared to prior - will check B12 and folate DM2 - not on any home medications reported - will check A1c HTN - continue home BP meds HLD - continue home statin A fib with pacemaker - will get pacemaker interrogation, patient feels it is out of place Diet: CC/Renal Ppx: Heparin Dispo: admit to medical for observation PCP: Dr. Taylor at [facility] Patient seen with Dr. Marmolejo FMR H&P: Upper Level - Pertinent history 78 yo female here for abdominal swelling starting last night. Assoc vomiting, non-bilious, non-bloody. Also has decreased appetite. Patient lives with granddaughter who is not in the room. Pts son is in room to provide history. Pt has history of ESRD on HD, last session was yesterday. No complications after dialysis. Pt denies hx of EtOH use, hepatitis. - Pertinent findings VSS Lipase: 41 Albumin: 3.4 TotalProtein: 7.5 AST/ALT: / ALKPhos: 53 K: 3.7 WBC: 4.3 Cr: 3.25 Ca: 9.2 INR: 1.2 103/63 HR: 74 96% on RA RR: 11 CTAbd: interval development of large amount of ascites; cholelithiasis GEN: NAD ENT: bilateral blindness CARD: RRR, DIEGO PULM: CTAB ABD: distended but not taught; no spider angiomata, no fluid wave; TTP below the diaphragm b/l with no radiation, non-TTP in RUQ EXT: trace edema, pt notes it is TTP of [place] - Plan Date/Time: 01/15/19 1720 I, Amarjit Miramontes DO, have evaluated this patient and agree with findings/plan as outlined by internal affairs commander resident. Pertinent changes/additions are listed here. #new ascites -labs unremarkable -will get diagnostic paracentesis with cytology, cell count, LDH, albumin, AFB, protein, gram stain and culture -hepatitis panel -start rocephin 2/2 concern for SBP -BNP 1188, last ECHO 07/2018 EF 50-55% -suspect HF is source of ascites #ESRD on HD -Consult Hardik/Hilario #possible UTI -urine cultures pending -though squam epith cells seen on UA -rocephin will cover #HTN #HLD #Afib with pacemaker #DMII Addendum - Attending - Attending Attestation Date/Time: 01/16/19 1358 I personally evaluated the patient and discussed the management with Drs. Miramontes /Enzo I agree with the History, Examination, Assessment and Plan documented above with any addition or exceptions noted below. Patient seen in HD today not able to take off any fluid secondary low BP. Patient denies any CP, SOB or abdominal pain today. Note elevated BNP, HX A Fib s/p pacemaker. Concern ascites factors renal and cardiac HF rec consider Cardiology consultation . Continue Rocephin pending urine C&S. Overall patient stable. Noted results cholelithiasis, and macrocytic anemia in patient with ESRD. Echocardiogram ordered. Need to consider SAAG r/o portal HTN no history hepatic disease.
[2019-01-15] MEDS: Calcium Acetate 667 MG CAP PO SCH (17:41)
[2019-01-15] MEDS: Metoclopramide HCl 10 MG TAB PO SCH ×2 (17:42→20:56)
[2019-01-15] MEDS: Heparin 5,000 UNITS/ML VIAL SC SCH ×2 (17:42→21:01)
[2019-01-15] MEDS: cefTRIAXone\\ROCEPHIN 2 GM in Sodium Chloride 0.9% 100 ML IVPB SCH (17:43)
--- NOTE | 2019-01-15 18:56 | PDOC.EVN ---
Event Note - Event Note Event Note: INDICATION: new ascites PROCEDURE HOLLOW HANDLE BENCH WORKER: Janey Giraldo DO ATTENDING PHYSICIAN: Dr. Marmolejo Ultrasound used to ismael location: Yes CONSENT: Consent was obtained from patient and son (signed form as patient is blind) prior to the procedure. Indications, risks, and benefits were explained at length. PROCEDURE SUMMARY: A time-out was performed. My hands were washed immediately prior to the procedure. I wore a surgical cap, mask with protective eyewear, sterile gown and sterile gloves throughout the procedure. The area was cleansed and draped in usual sterile fashion using chlorhexidine scrub. Anesthesia was achieved with 1% lidocaine. The LLQ of the abdomen was prepped and draped in a sterile fashion using chlorhexidine scrub. 1% lidocaine was used to numb the skin, soft tissue and peritoneum. The paracentesis catheter was inserted and advanced with negative pressure until straw colored fluid was aspirated. Approximately 60 mL of ascitic fluid was collected and sent for laboratory analysis. The catheter was then connected to the vaccutainer and 1.1 liters of additional ascitic fluid were drained. The catheter was removed and no leaking was noted. A bandaid was placed over the puncture wound. The patient tolerated the procedure well without any immediate complications. Addendum - Attending - Attending Attestation Date/Time: 01/15/19 9150 I personally evaluated the patient and discussed the management with Dr. Giraldo I was present and supervised the paracentesis no complications patient tolerated the procedure well.
[2019-01-15] MEDS: Carvedilol 6.25 MG TAB PO SCH (20:57)
[2019-01-15] MEDS ORDERED: Mirtazapine 15 MG TAB PO SCH (21:00)
--- NOTE | 2019-01-16 00:10 | CON ---
DATE OF CONSULTATION: 01/15/2019 CONSULTING PHYSICIAN: Dr. Garrison. REASON FOR CONSULT: End-stage renal disease evaluation. REASON FOR ADMISSION: Vomiting. HISTORY OF PRESENT ILLNESS: An 78-year-old female with history of end-stage renal disease, on hemodialysis, coronary disease, type 2 diabetes, hypertension, came to the hospital with vomiting, was found to have ascites and has been admitted for further evaluation. The patient gets dialysis Saturday, Saturday, Saturday, due for dialysis tomorrow. Nephrology is consulted. No fevers, chills. No diarrhea. No abdominal pain reported. No chest pain or palpitation. PAST MEDICAL HISTORY: Positive for end-stage renal disease, coronary artery disease, type 2 diabetes, hyperlipidemia. PAST SURGICAL HISTORY: Dialysis shunt placement, C-sections, cataract surgery, pacemaker placement. HOME MEDICATIONS: 1. Hydralazine. 2. Atorvastatin. 3. Amlodipine. 4. Glipizide. 5. PhosLo. 6. Carvedilol. ALLERGIES: NO KNOWN DRUG ALLERGIES. SOCIAL HISTORY: No smoking, alcohol or drugs. FAMILY HISTORY: No history of any kidney disease. REVIEW OF SYSTEMS: CONSTITUTIONAL: Negative for weight loss or gain, ability to conduct usual activities. SKIN: Negative for rash, itching. EYES: Negative for double vision, pain. ENT/MOUTH: Negative for nose bleeding, neck stiffness, pain, tenderness. CARDIOVASCULAR: Negative for palpitations, dyspnea on exertion, orthopnea. RESPIRATORY: Negative for shortness of breath, wheezing, cough, hemoptysis, fever or night sweats. GASTROINTESTINAL: Negative for poor appetite, abdominal pain, heartburn, nausea, vomiting, constipation, or diarrhea. GENITOURINARY: Negative for urgency, frequency, dysuria, nocturia. MUSCULOSKELETAL: Negative for pain, swelling. NEUROLOGIC/PSYCHIATRIC: Negative for anxiety, depression. ALLERGY/IMMUNOLOGIC: Negative for skin rash, bleeding tendency. PHYSICAL EXAMINATION: GENERAL: This is a well-built female, in no apparent distress. VITAL SIGNS: Temperature 97.4, pulse 69, respiratory rate 16, blood pressure 107/55. HEENT: Atraumatic, normocephalic. Oral mucosa moist. NECK: Supple. CV: S1, S2. Rate and rhythm regular. RESPIRATORY: Clear to auscultation. GASTROINTESTINAL: Abdomen is soft. MUSCULOSKELETAL: 1+ edema. DERMATOLOGIC: No skin rash. NEUROLOGIC: Alert, awake. PSYCHIATRIC: Mood and affect normal. LABORATORY DATA: Hemoglobin is 11.3 potassium is 3.7, BUN is 70, creatinine is 3.2. ASSESSMENT AND PLAN: 1. End-stage renal disease. Continue on hemodialysis as tolerated. Plan is to continue hemodialysis Saturday, Saturday, Saturday. We will check echocardiogram. Continue further followup. 2. Edema, controlled. 3. Hypertension. 4. Anemia, chronic. 5. Plan to continue dialysis Saturday, Saturday, Saturday. Job ID: [id number]
[2019-01-16 05:04] LABS: Hemoglobin A1c 6.1 % (4.0-6.0)
[2019-01-16 05:20] LABS: Anion Gap 11 mmol/L (10-20); BUN (Urea Nitrogen) 22 mg/dL (9.8-20.1); Calc. Creatinine Clearance 11 mL/min (70-130); Calcium 8.8 mg/dL (7.8-10.44); Carbon Dioxide 33 mmol/L (23-31); Chloride 96 mmol/L (98-107); Estimated GFR-MDRD 12; Glucose 145 mg/dL (83-110); Potassium 4.3 mmol/L (3.5-5.1); Sodium 136 mmol/L (136-145)
[2019-01-16 05:30] LABS: #Monocytes 0.6 thou/uL (0.11-0.59); #Neutrophils 3.5 thou/uL (1.40-6.50); %Basophils 0.5 % (0.0-1.0); %Eosinophils 0.8 % (0.0-10.0); %Lymphocytes 20.1 % (21.0-51.0); %Monocytes 11.3 % (0.0-10.0); %Neutrophils 67.3 % (42.0-75.0); Elliptocytes SLIGHT = 2-5 cells (100X) (0-1/hpf); Hemoglobin 10.7 g/dL (12.0-16.0); MDiff Complete? YES; Mean Corpuscular HGB CONC 32.2 g/dL (32.0-36.0); Mean Corpuscular Hemoglobin 35.2 pg (27.0-31.0); Mean Platelet Volume 10.6 fL (7.4-10.4); Platelet Count 107 thou/uL (130-400); Platelet Morphology Comment Appears Decreased; Red Blood Cell (RBC) Count 3.04 mill/uL (4.20-5.40); White Blood Cell (WBC) Count 5.1 thou/uL (4.8-10.8)
[2019-01-16 05:41] LABS: HBSAg Index 0.25 S/CO (0-0.99); Hep B Core Total Ab Non-Reactive (NonReactive); Hep B Core Total Index 0.17 S/CO (0-0.79); Hep B Surf Ag Non-Reactive S/CO (NonReactive); Hep C IgG Ab Non-Reactive (NonReactive); Hep C Index 0.12 S/CO (0-0.79)
[2019-01-16 05:48] LABS: HBSAB Concentration 178.56 mIU/mL; Hep B Surf AB Reactive (NonReactive)
--- NOTE | 2019-01-16 06:38 | PDOC.FM ---
- Subjective Subjective: Ms. Sena denies pain this morning. Has no complaints. Says her abdomen feels better. - Objective Vital Signs & Weight: Vital Signs (12 hours) Temp Pulse Resp BP Pulse Ox 01/16/19 03:09 98.1 F 74 18 99/58 L 91 L 01/15/19 23:39 97.9 F 73 15 92/50 L 91 L 01/15/19 19:31 97.2 F L 63 15 107/57 L 93 L Weight Weight 55.837 kg Result Diagrams: 01/16/19 04:35 01/16/19 04:35 Phys Exam - Physical Examination Constitutional: NAD Respiratory: no wheezing, clear to auscultation bilateral Cardiovascular: RRR Distended but softer than yesterday, fluid wave present Musculoskeletal: no edema Neurological: non-focal Psychiatric: normal affect Skin: no rash Dx/Plan (1) Ascites Code(s): R18.8 - OTHER ASCITES Status: Acute (2) UTI (urinary tract infection) Status: Acute (3) Blindness Code(s): H54.7 - UNSPECIFIED VISUAL LOSS Status: Chronic (4) Afib Code(s): I48.91 - UNSPECIFIED ATRIAL FIBRILLATION Status: Chronic (5) Anemia Code(s): D64.9 - ANEMIA, UNSPECIFIED Status: Chronic (6) Diabetic gastroparesis Code(s): E11.43 - TYPE 2 DIABETES W DIABETIC AUTONOMIC (POLY)NEUROPATHY; K31.84 - GASTROPARESIS Status: Chronic (7) Hypertension Code(s): I10 - ESSENTIAL (PRIMARY) HYPERTENSION Status: Chronic (8) End stage renal disease on dialysis Code(s): N18.6 - END STAGE RENAL DISEASE; Z99.2 - DEPENDENCE ON RENAL DIALYSIS Status: Chronic (9) Hyperlipemia Code(s): E78.5 - HYPERLIPIDEMIA, UNSPECIFIED Status: Chronic (10) Type 2 diabetes mellitus Status: Chronic - Plan Plan: New onset ascitis - Ddx includes CHF, malignancy, hepatic etiology, infection - Paracentesis performed in ED 01/15, 1.7 L removed. Labs from this pending. - BNP 1188. Last echo 08/02/18 showed EF 50-55%. Pending echo. At this time CHF seems like more likely cause. - Liver enzymes normal, INR 1.2. - Hepatitis panel negative, Heb B immune - Lights criteria 0.5, pending LDH and albumin UTI - UA with pos nitrites, large leuk esterase, high WBC, high RBC - urine culture pending - Continue ceftriaxone (01/15) ESRD on HD MWF - consulted nephrology Macrocytic anemia, chronic - Hgb at baseline though noted to be increasingly more macrocytic compared to prior - B12 and folate normal. Will get smear and retic coutns. DM2 - not on any home medications - A1c 6.1 HTN - BP 90s systolic, hold hoem BP meds this am prior to dialysis HLD - continue home statin A fib with pacemaker - will get pacemaker interrogation, patient feels it is out of place Diet: CC/Renal Ppx: Heparin Addendum - Attending - Attending Attestation Date/Time: 01/16/19 7480 I personally evaluated the patient and discussed the management with Dr. Giraldo I agree with the History, Examination, Assessment and Plan documented above with any addition or exceptions noted below.
[2019-01-16 07:08] LABS: Folate (Folic Acid) 11.5 ng/mL (7.0-31.4)
[2019-01-16] MEDS: Heparin 5,000 UNITS/ML VIAL SC SCH ×2 (08:16→16:58)
[2019-01-16] MEDS: Metoclopramide HCl 10 MG TAB PO SCH ×3 (08:16→17:42)
[2019-01-16] MEDS: Carvedilol 6.25 MG TAB PO SCH (08:33)
[2019-01-16] MEDS: Calcium Acetate 667 MG CAP PO SCH ×3 (08:33→17:41)
[2019-01-16] MEDS ORDERED: Atorvastatin Calcium 40 MG TAB PO SCH (09:00)
[2019-01-16] MEDS ORDERED: Amlodipine 10 MG TAB PO SCH (09:00)
[2019-01-16 09:55] LABS: Hemoglobin 10.6 g/dL (12.0-16.0); Mean Corpuscular HGB CONC 31.2 g/dL (32.0-36.0); Mean Platelet Volume 10.8 fL (7.4-10.4); Platelet Count 127 thou/uL (130-400); RBC Distribution Width 14.1 % (11.5-14.5); Red Blood Cell (RBC) Count 3.13 mill/uL (4.20-5.40)
[2019-01-16] MEDS ORDERED: Albumin 25% 25 GM/100 ML BOT IVPB SCH (10:30)
[2019-01-16 10:44] LABS: Band 10 % (5-11); Elliptocytes SLIGHT = 2-5 cells (100X) (0-1/hpf); Lymphocytes 20 % (21-51); MDiff Complete? YES; Monocytes 10 % (0-10); Neutrophil 58 % (42-75); Ovalocytes SLIGHT = 2-5 cells (100X) (0-1/hpf); Platelet Morphology Comment Appears Decreased; Polychromasia SLIGHT = 2-3 cells (100X) (0-2/hpf)
--- NOTE | 2019-01-16 12:42 | PRG ---
DATE OF SERVICE: 01/16/2019 SUBJECTIVE: Patient was seen and examined at bedside and overnight events noted. Patient denies any shortness of breath or chest pain or palpitation. No history of nausea or vomiting or diarrhea or fever or chills or cramps. OBJECTIVE: GENERAL: This is a well-built female, in no apparent distress. VITAL SIGNS: Temperature 98.1. Heart rate 75. Respiratory rate 15. Blood pressure 96/52. HEENT: Atraumatic, normocephalic. Oral mucosa is moist NECK: Supple. CARDIOVASCULAR: S1, S2 heard. Rate and rhythm regular. RESPIRATORY: Clear to auscultation. GASTROINTESTINAL: Abdomen is soft. MUSCULOSKELETAL: No tenderness. No edema. DERMATOLOGIC: No skin rash. NEUROLOGIC: Alert and awake and oriented X3. No focal neurologic deficits. Moving all the extremities. PSYCHIATRIC: Mood and affect normal. LABORATORY DATA: Potassium 4.3, BUN is 72, creatinine is 3.0. ASSESSMENT AND PLAN: 1. End-stage renal disease. Continue on hemodialysis. 2. Edema, controlled. 3. Hypertension. 4. Anemia. Plan to continue on dialysis as tolerated. Job ID: [id number]
[2019-01-16 16:08] VITALS: TEMP 97.8
[2019-01-16] MEDS: cefTRIAXone\\ROCEPHIN 2 GM in Sodium Chloride 0.9% 100 ML IVPB SCH (17:00)
[2019-01-16 18:09] VITALS: BP 98/57
--- NOTE | 2019-01-19 11:47 | DIS ---
DATE OF ADMISSION: 01/15/2019 DATE OF DISCHARGE: 01/16/2019 RESIDENT: Janey Giraldo DO ADMITTING ATTENDING: Benitez Marmolejo MD DISCHARGE ATTENDING: Benitez Marmolejo MD CONSULT: Nephrology, Irvin Rich MD PROCEDURES: 1. 01/15/2019, abdomen and pelvis CT showed interval development of large amount of ascites, cholelithiasis. 2. 01/15/2019, paracentesis with 1.7 L removed. 3. Echocardiogram 01/16/2019 showed ejection fraction 55% to 60%, restrictive filling pattern, [id number] pulmonary hypertension, right ventricular pressure 40 mmHg, pacer wire visualized in right ventricle, moderately enlarged right atrium, severe tricuspid regurgitation, structurally normal aortic valve, mitral annular calcification present, left atrium in [id number] dilatation. PRIMARY DIAGNOSES: 1. New onset ascites. 2. Urinary tract infection. SECONDARY DIAGNOSES: 1. End-stage renal disease on hemodialysis Saturday, Saturday, Saturday. 2. Macrocytic anemia, chronic. 3. Type 2 diabetes. 4. Hypertension. 5. Hyperlipidemia. 6. Atrial fibrillation with pacemaker. DISCHARGE MEDICATIONS: 1. Calcium acetate 667 mg capsule 3 tabs p.o. t.i.d. 2. Mirtazapine 15 mg p.o. at bedtime. 3. Atorvastatin 40 mg p.o. daily. 4. Ondansetron 4 mg p.o. q.4 hours p.r.n. 5. Hydralazine 50 mg p.o. t.i.d. 6. Amlodipine 10 mg p.o. q.a.m. 7. Carvedilol 6.25 mg p.o. b.i.d. 8. Metoclopramide 2.5 mg p.o. daily. HISTORY OF PRESENT ILLNESS: An 78-year-old female with past medical history of end-stage renal disease on hemodialysis, presented for a 3-4 month history of increasing abdominal distention. Son felt that edema was also increasing in lower extremities, however, this was not seen on physical exam. In the outpatient setting, the patient's dental technologist has noticed this and has set up outpatient cardiology referral. However, this was not scheduled until the following month. The evening prior to admission, patient had increased bloating along with nausea and vomiting. She lives at home with consistent family members caring for her and ambulates with a walker. She was admitted for ascites. A paracentesis was performed in the emergency department on January 15 with 1.7 L removed, but more so for diagnostic purposes. Her BNP was 1188. Last echo prior showed a normal ejection fraction, so a repeat echo was performed. The read was not available at the time of discharge, but is listed above. The patient had normal liver enzymes. Additionally, the patient was noted to have urinary tract infection and urinalysis, and was treated with ceftriaxone while inpatient. Urine culture showed no growth at 48 hours. The patient had concerns about the placement of her pacemaker. Her pacemaker was interrogated and did not show any reported event since the previous year. EKG was completed that did show the pacemaker was pacing. Notable labs include hemoglobin 10.6, MCV 109. Platelets 127. PT 14.8, INR 1.2, creatinine 3.68, GFR 12, A1c 6.1, AST 21, ALT 10, alkaline phosphatase 53, BNP 1188, vitamin B12 of 665, folate 11.5, hepatitis B and C test were nonreactive. Hepatitis B surface antibody reactive. Of the ascites fluid, the labs were as follows. LDH 55, albumin 2.1, total protein 3.8. Fluid was yellow and hazy. Pathology differential review showed ascites body fluid with other cells are macrophages and mesothelial cells. No malignant cells identified. Serum albumin was 3.4. It was felt that the patient could follow up with Cardiology along with the most recent echo results and complete this workup in an outpatient setting. The patient was back at baseline at the time of discharge. DISPOSITION: Stable. DISCHARGE INSTRUCTIONS: 1. Location: Home. 2. Diet: Renal and diabetic. 3. Activity: As tolerated. 4. Followup: Follow up with PCP at [facility] in 3 days. Job ID: [id number] Recommend Outpatient Cardiology F/u regard ascites contributing etiology / factor HF consider raising pacemaker threshold to rate 70s to increase CO. Patient 100 % paced rate 60s at time of discharge. MTDD
--- NOTE | 2019-01-19 22:40 | EKG ---
Test Reason : Blood Pressure : / mmHG Vent. Rate : 065 BPM Atrial Rate : 070 BPM P-R Int : 000 ms QRS Dur : 082 ms QT Int : 400 ms P-R-T Axes : 000 047 -89 degrees QTc Int : 416 ms Demand pacemaker; interpretation is based on intrinsic rhythm Atrial fibrillation with premature ventricular or aberrantly conducted complexes Low voltage QRS T wave abnormality, consider lateral ischemia or digitalis effect Abnormal ECG When compared with ECG of 15-SEP-2018 15:08, Electronic demand pacing is now Present ST no longer depressed in Lateral leads QT has shortened Confirmed by Gely RONQUILLO ([id number]) on 01/19/2019 10:40:23 PM Referred By: Confirmed By:Gely RONQUILLO
== END 2019-01-16 18:42 | disposition home or self-care (01) ==
LOC: ERS 08:55 → ERHOLD 11:47 → 2SW 15:32
PROVIDERS: ADMIT Family Medicine; ATTEND Family Medicine
PROC: 0W9G3ZX Drainage of Peritoneal Cavity, Percutaneous Approach, Diagnostic (ICD-10-PCS; principal; 2019-01-15)
DX: R18.8 Other ascites (principal); N39.0 Urinary tract infection, site not specified; I12.0 Hypertensive chronic kidney disease with stage 5 chronic kidney disease or end stage renal disease; E11.22 Type 2 diabetes mellitus with diabetic chronic kidney disease; N18.6 End stage renal disease; D63.1 Anemia in chronic kidney disease; I48.91 Unspecified atrial fibrillation; H54.7 Unspecified visual loss; E78.5 Hyperlipidemia, unspecified; E11.43 Type 2 diabetes mellitus with diabetic autonomic (poly)neuropathy; K31.84 Gastroparesis; I25.10 Atherosclerotic heart disease of native coronary artery without angina pectoris; Z79.899 Other long term (current) drug therapy; Z99.2 Dependence on renal dialysis; Z95.0 Presence of cardiac pacemaker; Z79.84 Long term (current) use of oral hypoglycemic drugs
CPT/HCPCS: 49082; 51701; 74177; 80048; 80053; 82042; 82607; 82746; 82962; 83036; 83615 ×2; 83690; 83880; 84157; 85007; 85025 ×2; 85027; 85046; 85610; 85730; 86704; 86706; 86803; 87070; 87086; 87205; 87206; 87340; 89051; 93005; 93306; 96361; 96365; 96375; 97116; 97139; 99285; G0378 ×2; P9047; 36415; 36416; 81003; 81015; 85060; 90471; 90670; 90935; 93010; 96374; A4353; G0009; G0257; J0696; J1644; J2405; J3490; J8597; Q9966

== ENCOUNTER 2019-02-21 12:24 | Inpatient (IN) | payer MEDICARE, MEDICAID ==
--- NOTE | 2019-02-21 12:55 | RAD ---
RADIOGRAPH CHEST 1 VIEW: DATE: 02/21/2019 TIME: 12:38 PM HISTORY: 78-year-old female with dyspnea COMPARISON: 08/01/2018 FINDINGS: Again noted is the right subclavian dual lead pacemaker. Cardiomegaly is again noted. Pulmonary venou s congestion. New finding of effacement of right lateral costophrenic angle. No consolidation or pneumothorax. IMPRESSION: 1. Cardiomegaly and pulmonary venous congestion, suggestive of minimal or mild congestive heart failu re. 2. Questionable small right pleural effusion
[2019-02-21 13:38] LABS: #Lymphocytes 0.8 thou/uL (1.20-3.40); #Monocytes 0.5 thou/uL (0.11-0.59); #Neutrophils 2.4 thou/uL (1.40-6.50); %Basophils 0.4 % (0.0-1.0); %Eosinophils 0.3 % (0.0-10.0); %Lymphocytes 21.9 % (21.0-51.0); %Monocytes 12.6 % (0.0-10.0); %Neutrophils 64.8 % (42.0-75.0); Hemoglobin 11.1 g/dL (12.0-16.0); Mean Corpuscular HGB CONC 31.4 g/dL (32.0-36.0); Mean Corpuscular Hemoglobin 34.4 pg (27.0-31.0); Mean Platelet Volume 8.7 fL (7.4-10.4); Platelet Count 141 thou/uL (130-400); Red Blood Cell (RBC) Count 3.23 mill/uL (4.20-5.40); White Blood Cell (WBC) Count 3.8 thou/uL (4.8-10.8)
[2019-02-21 13:59] LABS: ALT (SGPT) 8 U/L (8-55); AST (SGOT) 17 U/L (5-34); Albumin 3.2 g/dL (3.4-4.8); Alkaline Phosphatase 59 U/L (40-150); BUN (Urea Nitrogen) 20 mg/dL (9.8-20.1); Bilirubin, Total 0.8 mg/dL (0.2-1.2); CK (CPK) 33 U/L (29-168); Calc. Creatinine Clearance 0 mL/min (70-130); Estimated GFR-MDRD 13; Globulin 3.8 g/dL (2.4-3.5); Glucose 211 mg/dL (83-110); Lipase 25 U/L (8-78)
[2019-02-21 14:03] LABS: Chloride 93 mmol/L (98-107); Potassium 3.5 mmol/L (3.5-5.1); Sodium 137 mmol/L (136-145)
[2019-02-21 14:07] LABS: Anion Gap 11 mmol/L (10-20); Carbon Dioxide 36 mmol/L (23-31)
[2019-02-21 15:57] LABS: CKMB 2.5 ng/mL (0-6.6)
[2019-02-21] MEDS ORDERED: Aspirin Chewable 81 MG TAB ONE (16:57)
[2019-02-21 18:58] LABS: Troponin I 0.238 ng/mL (< 0.028)
[2019-02-21 21:25] LABS: Troponin I 0.251 ng/mL (< 0.028)
--- NOTE | 2019-02-21 21:51 | PDOC.FPRHP ---
- History of Present Illness Chief Complaint: SOB History of Present Illness: Ms Sena is a malaysian speaking 78yo female with pmh ESRD on HD MWF, HFpEF, Pulmonary HTN, DMII, HLD, Afib with pacemaker presenting for SOB of 1 day duration. Started feeling SOB after dialysis yesterday. Reports no hx of problems with low BP but yesterday BP was too low to do dialysis. However speaking with Dr Dye her food checker this has been an ongoing problem. She does not make urine. Reports diffuse body aches and dizziness with standing since yesterday. Denies fever, chills, confusion. PCP: [facility] (Dr Holt) ED Course: ASA 81mg - Allergies/Adverse Reactions Allergies Allergy/AdvReac Type Severity Reaction Status Date / Time No Known Allergies Allergy Verified 01/15/19 15:54 - Home Medications Medication Instructions Recorded Confirmed Type Calcium Acetate 1 tab PO TID-WM 03/13/14 02/21/19 History Atorvastatin Calcium [Lipitor] 40 mg PO HS 05/31/15 02/21/19 History Mirtazapine 15 mg PO HS 05/31/15 02/21/19 History Amlodipine [Norvasc] 5 mg PO QAM 08/01/18 02/21/19 History Carvedilol [Coreg] 6.25 mg PO BID 08/01/18 02/21/19 History Metoclopramide HCl [Metoclopramide 2.5 mg PO DAILY 01/15/19 02/21/19 History HCl Odt] glipiZIDE [Glipizide] 2.5 mg PO DAILY 02/21/19 02/21/19 History hydrALAZINE HCl [Apresoline] 25 mg PO TID 02/21/19 02/21/19 History - History PMHx: ESRD on HD MWF, angina, afib with pacemaker, blindness, HTN, HLD, DM2 PSHx: x2, cataract, dialysis shunt L arm 2007, pacemaker FHx: Father- Parkinson like disease, Mother- Cancer Social: Denies tobacco, alcohol, drug use - Review of Systems General: reports: fatigue. denies: fever/chills, weight/appetite/sleep changes Eyes: denies: eye pain, vision changes ENT: denies: nasal congestion, rhinorrhea Respiratory: reports: shortness of breath. denies: cough Cardiovascular: denies: chest pain, palpitation Gastrointestinal: denies: nausea, vomiting Genitourinary: denies: dysuria, other (hematuria) Skin: denies: rashes, lesions Musculoskeletal: reports: pain (diffuse), tenderness (diffuse) Neurological: reports: weakness. denies: numbness - Vital signs BP: 97/59 HR: 74 RR: 18 Tmax: 97.8 Pox: 92% on RA Wt: 70kg - Physical Exam Constitutional: NAD, awake, alert and oriented, well developed HEENT: normocephalic and atraumatic, conjunctiva clear, oropharynx clear Neck: supple, trachea midline Heart: no murmurs/rubs/gallops (systolic murmur), other (Afib. No LE edema. Left upper arm fistual with bruit and thrill.) Lungs: other (Diffuse crackles) Abdomen: soft, non-tender, bowel sounds present Musculoskeletal: normal structure, normal tone Neurological: no focal deficit Skin: no rash/lesions Psychiatric: normal mood and affect FMR H&P: Results - Labs Result Diagrams: 02/22/19 05:35 02/22/19 05:35 Lab results: WBC 3.8 thou/uL (4.8-10.8) L 02/21/19 12:58 Hgb 11.1 g/dL (12.0-16.0) L 02/21/19 12:58 Hct 35.3 % (36.0-47.0) L 02/21/19 12:58 MCV 110.0 fL (78.0-98.0) H 02/21/19 12:58 Plt Count 141 thou/uL (130-400) 02/21/19 12:58 Neutrophils % 64.8 % (42.0-75.0) 02/21/19 12:58 Sodium 137 mmol/L (136-145) 02/21/19 12:58 Potassium 3.5 mmol/L (3.5-5.1) 02/21/19 12:58 Chloride 93 mmol/L (98-107) L 02/21/19 12:58 Carbon Dioxide 36 mmol/L (23-31) H 02/21/19 12:58 BUN 20 mg/dL (9.8-20.1) 02/21/19 12:58 Creatinine 3.36 mg/dL (0.6-1.1) H 02/21/19 12:58 Glucose 211 mg/dL (83-110) H 02/21/19 12:58 Calcium 9.0 mg/dL (7.8-10.44) 02/21/19 12:58 Total Bilirubin 0.8 mg/dL (0.2-1.2) 02/21/19 12:58 AST 17 U/L (5-34) 02/21/19 12:58 ALT 8 U/L (8-55) 02/21/19 12:58 Alkaline Phosphatase 59 U/L (40-150) 02/21/19 12:58 Creatine Kinase 33 U/L (29-168) 02/21/19 12:58 CK-MB (CK-2) 2.5 ng/mL (0-6.6) 02/21/19 14:53 B-Natriuretic Peptide 1659.2 pg/mL (0-100) H 02/21/19 14:53 Serum Total Protein 7.0 g/dL (6.0-8.3) 02/21/19 12:58 Albumin 3.2 g/dL (3.4-4.8) L 02/21/19 12:58 Lipase 25 U/L (8-78) 02/21/19 12:58 - EKG Interpretation EK lead EKG shows, atrial fibrillation with controlled ventricular response, Rate (beats per minute): 72, with occasional ventricular paced complexes, Interpretation:, Conduction normal, ST segments normal, T waves, [place], indeterminate, Other findings include:, low voltage QRS, Clinical impression:, non-specific EKG. - Radiology Interpretation Chest x-ray Status: report reviewed by me Additional comment: Cardiomegaly and pulmonary venous congestion suggestive of CHF. Questionable R pleural effusion FMR H&P: A/P - Problem List (1) Ascites Current Visit: No Status: Acute Code(s): R18.8 - OTHER ASCITES (2) Afib Current Visit: No Status: Chronic Code(s): I48.91 - UNSPECIFIED ATRIAL FIBRILLATION (3) Anemia Current Visit: No Status: Chronic Code(s): D64.9 - ANEMIA, UNSPECIFIED (4) Blindness Current Visit: No Status: Chronic Code(s): H54.7 - UNSPECIFIED VISUAL LOSS (5) End stage renal disease on dialysis Current Visit: No Status: Chronic Code(s): N18.6 - END STAGE RENAL DISEASE; Z99.2 - DEPENDENCE ON RENAL DIALYSIS (6) Hyperlipemia Current Visit: No Status: Chronic Code(s): E78.5 - HYPERLIPIDEMIA, UNSPECIFIED (7) Hypertension Current Visit: No Status: Chronic Code(s): I10 - ESSENTIAL (PRIMARY) HYPERTENSION (8) Type 2 diabetes mellitus Current Visit: No Status: Chronic - Plan Ms Sena is a malaysian speaking 78yo female with pmh ESRD on HD MWF, HFpEF, Pulmonary HTN, DMII, HLD, Afib with pacemaker presenting in volume overload. ESRD on HD with volume overload - MWF schedule, however did not receive yesterday due to hypotension - Discharged 1 month ago and was to follow up with cardiology for further workup /management of ascites - Currently BP 97/59 - Nephrology consulted - Consult cardiology in AM - Consulted Palliative care - Admit to tele HFpEF - Echo 01/16: EF 55-60%/. Mild/Mod Pulm HTN. Severe TR - HH diet with fluid restriction - Daily wt, Strict I&Os Pulm HTN HTN - Hold home meds due to hypotension Afib with pacemaker - Rate controlled - Continue home meds DMII - Accuchecks ACHS - CC diet - Mild SSI, Hypoglycemic protocol HLD - Continue home meds Depression - Continue home meds Recent paracentesis for ascites Code Status: FULL DVT ppx: SCDs PCP: [facility] (Dr Holt) FMR H&P: Upper Level - Pertinent history 78 yr old female with ESRD on HD MWF who presents with SOB. She reports SBO this afternoon that is now improved. Has not required O2. She reports missing dialysis yesterday because it was stopped due to hypotension. The daughter is at bedside and helping with translation and reports this being first episode of hypotension however after discussion with her food checker, this is an ongoing issue. SHe was hospitalized and had paracentesis a couple months ago for new onset ascites. - Pertinent findings Gen: no acute distress, normal appearance for age however appears deconditioned Heart: harsh systolic murmur in LUSB 3/6, reg rate and rhythm. Lungs: CTAB, no wheezes, rhales, rhonchi, diminished breath sounds in BLL Abd: distended, soft, nontender Ext: no edema in BLE EKG: a fib with reg rhythm/rate, low voltage QRS, no ST elevation - Plan Date/Time: 02/21/19 3698 I, [Ariana Echeverria], have evaluated this patient and agree with findings/plan as outlined by social media intern resident. Pertinent changes/additions are listed here. ESRD on HD with volume overload -likley worsened due to missing HD session -nephro recommends cards consult which will do in AM - needs dialysis if tolerated -palliative care consult Pulm HTN Ascites -no clear etiology -consider GI workup HFpEF -cont home meds as tolerated due to hypotension Addendum - Attending - Attending Attestation Date/Time: 02/22/19 1110 I personally evaluated the patient and discussed the management with Drs. Harris/Juwan I agree with the History, Examination, Assessment and Plan documented above with any addition or exceptions noted below. Patient known to be with previous hospitalization with HFPEF will rec Cardiology consultation for further recommendation Nephrology aware of patient and attempt inpatient dialysis in am note poorly tolerated and stopped recently due to hypotension.
[2019-02-21 22:46] LABS: Magnesium 1.8 mg/dL (1.6-2.6)
[2019-02-22] MEDS ORDERED: Dextrose 50% Abboject 50 ML SYRINGE SLOW IVP PRN (01:25)
[2019-02-22] MEDS ORDERED: HumaLOG 300 UNITS/3 ML VIAL SC PRN (01:25)
[2019-02-22] MEDS ORDERED: Dextrose 5% in Water 1,000 ML IV PRN (01:25)
[2019-02-22] MEDS ORDERED: Polyethylene Glycol 3350 17 GM Packet PO PRN (01:53)
[2019-02-22] MEDS ORDERED: Ondansetron ODT 4 MG TAB PO PRN (01:53)
[2019-02-22 03:17] VITALS: BMI 22.3
[2019-02-22] MEDS ORDERED: DOBUTamine 500 mg/250 ml 250 ML IVPB SCH (05:15)
--- NOTE | 2019-02-22 05:15 | PDOC.EVN ---
Event Note - Event Note Event Note: Residents were called to bedside for low blood pressure and O2 sat in 70's. Patient does not complain of SOB or chest pain. She was placed on venti mask and O2 improved to 92%. She does have worsening ascites. VS: BP 80/42 improved to 105/63 at this time. HR: 60-70 Temp: 97.5 RR: 24 Gen: appears comfortable Heart: RRR, harsh systolic murmur 3/6 heard best at LUSB Lungs: Crackles in BLL, shallow inspiration with diminished breath sounds Abd: worsened distention, tympanotic, BS normal active, nontender to palpation Ext: Trace edema A/P ACUTE HYPOXIC RESPIRATORY FAILURE -Dr. Marmolejo was contacted and came in to see patient. -upon evaluation, pateint is transferred to ICU. -will initiate bipap and monitor, wean as able - suspect this is worsened due to her severe ascites Hypotension -suspect worsened 2/2 ascites -history of hypotension with ESRD and not tolerating HD -no evidence of sepsis at this time -will start dobutamine drip Ascites -likely 2/2 to heart failure - will attempt therapeutic paracentesis after dobutamine started. volume overload -attempt dialysis in AM in ICU Overall, poor prognosis. Palliative care is consulted, appreciate recs. Cards consult in AM. Addendum - Attending - Attending Attestation Date/Time: 02/22/19 7633 I personally evaluated the patient and discussed the management with Dr. Echeverria I agree with the History, Examination, Assessment and Plan documented above with any addition or exceptions noted below. Patient with respiratory distress desat to 80s and manual SBP 70s tense ascites compromising respiration. Patient with ESRD not tolerating HD secondary to hypotension. Will rec higher level of care and Bipap for now with planned paracentesis rec keep MAP >60 pressors prn with diastolic HFpEF consider dobutamine. Hopefully will tolerate bedside dialysis Nephrology to see. Appreciate recommendations from Critical Care.
[2019-02-22 05:56] LABS: #Monocytes 0.5 thou/uL (0.11-0.59); %Basophils 0.6 % (0.0-1.0); %Eosinophils 0.7 % (0.0-10.0); %Lymphocytes 21.8 % (21.0-51.0); %Monocytes 10.6 % (0.0-10.0); %Neutrophils 66.2 % (42.0-75.0); Hemoglobin 11.1 g/dL (12.0-16.0); Mean Corpuscular HGB CONC 31.4 g/dL (32.0-36.0); Mean Corpuscular Hemoglobin 34.5 pg (27.0-31.0); Platelet Count 141 thou/uL (130-400); RBC Distribution Width 14.2 % (11.5-14.5); Red Blood Cell (RBC) Count 3.22 mill/uL (4.20-5.40); White Blood Cell (WBC) Count 4.5 thou/uL (4.8-10.8)
[2019-02-22 06:16] LABS: Anion Gap 15 mmol/L (10-20); BUN (Urea Nitrogen) 24 mg/dL (9.8-20.1); Calc. Creatinine Clearance 12 mL/min (70-130); Calcium 8.9 mg/dL (7.8-10.44); Carbon Dioxide 30 mmol/L (23-31); Chloride 96 mmol/L (98-107); Estimated GFR-MDRD 12; Glucose 199 mg/dL (83-110); Potassium 3.7 mmol/L (3.5-5.1); Sodium 137 mmol/L (136-145)
--- NOTE | 2019-02-22 07:22 | PDOC.EVN ---
Event Note - Event Note Event Note: Paracentesis INDICATION: Acute hypoxic respiratory failure Residents: Dr Tish Harris MD & Ariana Echeverria MD ATTENDING PHYSICIAN: Dr Benitez Marmolejo Ultrasound used to ismael location: Y CONSENT: Consent was obtained from patient with family present prior to the procedure. Indications, risks, and benefits were explained at length. PROCEDURE SUMMARY: A time-out was performed. Hands were washed immediately prior to the procedure. Sterile gloves worn throughout the procedure. The area was cleansed and draped in usual sterile fashion using chlorhexidine scrub. The right lower quadrant of the abdomen was prepped and draped in a sterile fashion. 1% lidocaine was used to numb the skin, soft tissue and peritoneum. The paracentesis catheter was inserted and advanced with negative pressure until yellow colored fluid was aspirated. The catheter was then connected to the vaccutainer and 4 liters of additional ascitic fluid were drained. The catheter was removed and no leaking was noted. A bandaid was placed over the puncture wound. The patient tolerated the procedure well without any immediate complications, blood pressure was stable throughout and after procedure. Estimated blood loss was <5mls. Addendum - Attending - Attending Attestation Date/Time: 02/22/19 1105 I personally evaluated the patient and assisted Dr. Harris with the paracentesis as described above. Patient tolerated procedure well removed 4 liters fluid with improvement in respiratory excursion . Will rec IV albumin. Patient tolerated procedure well without complication
[2019-02-22] MEDS: Albumin 25% 25 GM/100 ML BOT IVPB SCH (07:29)
[2019-02-22] MEDS ORDERED: DOBUTamine 500 mg/250 ml 500 MG in Premix Bag 1 BAG IVPB SCH (07:30)
[2019-02-22] MEDS ORDERED: glipiZIDE 5 MG TAB PO SCH (07:30)
[2019-02-22] MEDS: Metoclopramide HCl 10 MG TAB PO SCH (08:50)
[2019-02-22] MEDS: Calcium Acetate 667 MG CAP PO SCH ×3 (08:58→16:57)
[2019-02-22] MEDS: Docusate 100 MG CAP PO SCH ×2 (08:59→20:38)
[2019-02-22] MEDS: Midodrine HCl 5 MG TAB PO SCH ×3 (09:04→20:38)
--- NOTE | 2019-02-22 09:27 | CON ---
DATE OF CONSULTATION: 02/22/2019 CONSULTING PHYSICIAN: [facility]. REASON FOR CONSULTATION: Mandatory for CCU placement. HISTORY OF PRESENT ILLNESS: The patient is an 78-year-old Citizen [place]-speaking only female, who came in yesterday with 1-day duration of increasing shortness of breath. The patient is apparently a chronic hemodialysis patient, who has not been able to tolerate the dialysis very well due to sustained hypotension. The patient was originally admitted to the floor but got short of breath and was transferred here for BiPAP therapy. She underwent a large volume paracentesis earlier this morning. I have successfully been able to take her off BiPAP afterward. PAST MEDICAL HISTORY: 1. End-stage renal disease. 2. Angina. 3. AFib. 4. Blindness. 5. Hypertension. 6. Hyperlipidemia. 7. Diabetes mellitus type 2. PAST SURGICAL HISTORY: 1. x2. 2. Cataract surgery. 3. AV shunt, left arm. 4. Pacemaker placement. SOCIAL HISTORY: Nonsmoker. Does not consume alcohol. Does not use illicit drugs. FAMILY MEDICAL HISTORY: Remarkable for Parkinson disease and cancer. MEDICATIONS: Prior to admission; 1. Calcium acetate. 2. Atorvastatin. 3. Mirtazapine. 4. Amlodipine. 5. Carvedilol. 6. Metoclopramide. 7. Glipizide. 8. Hydralazine. REVIEW OF SYSTEMS: Otherwise, negative. PHYSICAL EXAMINATION: VITAL SIGNS: Temperature 97.2, pulse 72, blood pressure currently 98/57, respiratory rate 13, and O2 saturation 100% on nasal cannula. GENERAL: She is awake and in no distress. HEENT: Pupils react. Sclerae are anicteric. Oropharynx is clear. NECK: No JVD. LUNGS: Clear to auscultation. CARDIAC: S1 and S2, regular with 2/6 systolic murmur at the left sternal border. ABDOMEN: Slightly protuberant. Blood in the right lower quadrant, where she just had a therapeutic paracentesis. EXTREMITIES: No clubbing, cyanosis, or edema. LABORATORY DATA: Sodium 137, potassium 3.7, chloride 96, CO2 of 30, BUN 24, creatinine 3.5, and glucose 199. White blood cell count 4.5, hematocrit 35.4, and platelet count 141. IMAGING DATA: Her chest x-ray shows no definitive mass. She has a slight right pleural effusion, slight cardiomegaly. ASSESSMENT: 1. Ascites - I am not really sure what the etiology of ascites is. I do not see a definitive history of cirrhosis in the past. 2. Hypotension - again, I do not see a history of hypotension in the past in particular given that she is on Coreg and hydralazine at home. 3. Acute respiratory failure, which is secondary to abdominal distention from ascites - now resolved. 4. End-stage renal disease, requiring hemodialysis. RECOMMENDATIONS: 1. I would recommend withholding her antihypertensives. 2. Consider further workup for cirrhosis if not already performed. 3. Agree with the albumin. 4. Do not give dobutamine in this situation. 5. Consider adding midodrine if hypotension continues to be a problem. We will follow. Above encompassed 35 minutes of critical care time. Job ID: [id number]
[2019-02-22] MEDS ORDERED: Albumin 25% 25 GM/100 ML BOT IVPB SCH (11:30)
[2019-02-22 12:31] LABS: BF Color Yellow; Body Fluid Source Ascites Body Fluid; Clarity Clear (Clear); Tube # EDTA
[2019-02-22 12:33] LABS: BF RBC Count - Manual 375 /cumm; BF WBC/Nonhematics Ct. - Manua 96 /cumm
[2019-02-22 12:53] LABS: BF Segmented Neutrophils 4 %; Cell Count Non Hematic 72 %; Lymphocytes 24 %
--- NOTE | 2019-02-22 13:03 | CON ---
DATE OF CONSULTATION: 02/22/2019 REASON FOR CONSULTATION: Hypotension during dialysis. PRIMARY SCRAP PREPARATION SUPERVISOR: Rayo Reveles MD HISTORY OF PRESENT ILLNESS: Ms. Sena is a very pleasant 78-year-old female, who comes to the hospital for shortness of breath. She gets dialyzed on Saturday, Saturday, and Saturday with Dr. Dye and Dr. Rich. She had a scheduled dialysis on Saturday, which she could not tolerate as blood pressure would drop, so this was skipped, had to present over the weekend as she became more short of breath. She was found to have a large amount of ascites, about 4 L taken out and is feeling much better. Dialysis will attempt to be completed today as well. She had a similar admission about a month ago and she had a large amount of ascites. She had an echocardiogram at that time and had normal LV function. However, she had mildly elevated right-sided pressures. Dr. Reveles saw her in 2013 and she had sick sinus syndrome with long pauses and history of paroxysmal atrial fibrillation. She received a pacemaker at that time. She is not sure whom she had been following with. PAST MEDICAL HISTORY: 1. End-stage renal disease, on hemodialysis Saturday, Saturday, and Saturday. 2. History of paroxysmal atrial fibrillation. 3. History of tachy-ida syndrome with pacemaker placement. 4. Blindness. 5. Hypertension. 6. Hyperlipidemia. 7. Type 2 diabetes. PAST SURGICAL HISTORY: 1. . 2. Cataract surgery. 3. Dialysis fistula in left arm. 4. Pacemaker placement as well. FAMILY HISTORY: Noncontributory. SOCIAL HISTORY: No alcohol, tobacco, or drugs. OUTPATIENT MEDICATIONS: 1. Calcium. 2. Atorvastatin 40 mg at bedtime. 3. Mirtazapine. 4. Amlodipine. 5. Carvedilol 6.25 b.i.d. 6. Metoclopramide p.r.n. 7. Glipizide. 8. Hydralazine 25 mg t.i.d. ALLERGIES: NO KNOWN DRUG ALLERGIES. REVIEW OF SYSTEMS: A 12-point review of systems was done and was all negative unless stated in the history of present illness. PHYSICAL EXAMINATION: VITAL SIGNS: Temperature 97.9, respiratory rate 24, saturating 100% on 3 L nasal cannula, and blood pressure 88/45. Currently, her blood pressure is 86/40. GENERAL: Awake, alert, and oriented x3, in no distress. HEENT: Normocephalic and atraumatic. NECK: Supple. LUNGS: Clear. CARDIOVASCULAR: S1 and S2. There is a grade 2/6 systolic murmur at the right upper sternal border. Second murmur at the 4th intercostal space. ABDOMEN: Soft. Positive bowel sounds. EXTREMITIES: 1+ edema. SKIN: Warm and dry. LABORATORY DATA: Laboratory work was reviewed. CBC with a white count of 3.8, hemoglobin 11, hematocrit of 35, and platelet count of 141. Chemistries were reviewed. Troponin has been in the indeterminate range of 0.26, 0.23, 0.25, consistent with her history of renal dysfunction. IMAGING DATA: EKG is paced. Echocardiogram performed about a month ago showed pulmonary hypertension with RV systolic pressures of 40 mmHg. LV function of 55% to 60% with restrictive filling pattern. Severe TR. ASSESSMENT AND PLAN: 1. Acute on chronic diastolic heart failure. 2. Right ventricular dysfunction. 3. End-stage renal disease. 4. Volume overload. 5. Hypotension during dialysis. PLAN: 1. Agree with midodrine. I do not think she would need any pressors at this time. I think she needs to be off most of her blood pressure medicines and just restart with her blood pressure regimen. to see what medications she will require on the days that she is not getting dialyzed. 2. We will interrogate her pacemaker. 3. We will repeat an echocardiogram to make sure that her RV pressure is not coming up. 4. We will follow. Job ID: [id number]
--- NOTE | 2019-02-22 16:38 | CON ---
DATE OF CONSULTATION: REASON FOR CONSULTATION: Stage 6 chronic kidney disease, on maintenance hemodialysis. HISTORY OF PRESENT ILLNESS: This is an 78-year-old female with history of congestive heart failure and recurrent ascites, who was sent to the emergency room after she was reported to be hypotensive. The patient was advised to follow the hospital on Saturday, but failed to do so and showed up last night. The patient denies any nausea, vomiting, or chest pain, but has chronic dyspnea with exertion and has swelling of abdomen and legs. PAST MEDICAL HISTORY: End-stage kidney disease, hypertension, diabetes mellitus type 2, congestive heart failure with diastolic dysfunction and severe tricuspid regurgitation, history of ascites, history of hypertension, history of angina, history of , history of AV fistula, history of tunneled dialysis catheter. FAMILY HISTORY: Negative for ESRD. ALLERGIES: REVIEWED. MEDICATIONS: Home medications list reviewed. Hospital medication list reviewed. REVIEW OF SYSTEMS: A 15-point review of systems was performed, negative except for positives noted above. GENERAL: HEAD: NECK: No swelling or lumps. NOSE: No epistaxis or discharge. EYES: No diplopia or pain. RESPIRATORY: CARDIOVASCULAR: GASTROINTESTINAL: /TAXONOMY TEACHER: MUSCULOSKELETAL: No joint pain. NEUROPSYCHIATIC SYSTEMS: No suicidal ideation. No ideation. SKIN: Denies any rash or ulcer. CONSTITUTIONAL: No fever or chills. PHYSICAL EXAMINATION: GENERAL: The patient is awake and alert. VITAL SIGNS: Afebrile, pulse 60, breathing 16, blood pressure 91/46. GENERAL APPEARANCE AND MENTAL STATUS: Fair. HEAD/NECK: Normocephalic. Atraumatic. EYES: EOMI. No deformity. EARS: Clear. No ulcers. NOSE: Intact. No lesions. MOUTH: Clear. No discharge. THROAT: Clear. No exudate. LUNGS: Clear. No crackles. CARDIAC: S1, S2. No rub. ABDOMEN: Shows ascites. Benign. Bowel sounds positive. GENITALIA/RECTUM: Jackson absent. BACK/EXTREMITIES: Lower extremities have edema. NEUROLOGICAL: Alert and motor intact. SKIN: LYMPHATICS: LABORATORY DATA: Labs reviewed. ASSESSMENT AND PLAN: Stage 6 chronic kidney disease, plan dialysis with albumin. Risks versus benefits of dialysis were discussed with the patient's son and advised, if the patient becomes hypotensive then pursuing palliative care and hospice would be a better option. Anemia stable. Congestive heart failure with diastolic dysfunction and tricuspid regurgitation. Medications based on GFR appropriate. Job ID: [id number]
[2019-02-22] MEDS: Mirtazapine 15 MG TAB PO SCH (20:38)
[2019-02-22] MEDS: Atorvastatin Calcium 40 MG TAB PO SCH (20:38)
[2019-02-23 04:27] LABS: #Eosinphils 0.1 thou/uL (0.0-0.7); #Lymphocytes 1.3 thou/uL (1.20-3.40); #Monocytes 0.6 thou/uL (0.11-0.59); #Neutrophils 3.2 thou/uL (1.40-6.50); %Basophils 0.4 % (0.0-1.0); %Eosinophils 1.1 % (0.0-10.0); %Lymphocytes 24.5 % (21.0-51.0); %Monocytes 11.8 % (0.0-10.0); %Neutrophils 62.2 % (42.0-75.0); Hemoglobin 10.7 g/dL (12.0-16.0); Mean Corpuscular HGB CONC 31.5 g/dL (32.0-36.0); Mean Corpuscular Hemoglobin 34.3 pg (27.0-31.0); Mean Platelet Volume 8.5 fL (7.4-10.4); Platelet Count 136 thou/uL (130-400); Red Blood Cell (RBC) Count 3.13 mill/uL (4.20-5.40); White Blood Cell (WBC) Count 5.1 thou/uL (4.8-10.8)
[2019-02-23 04:47] LABS: Anion Gap 10 mmol/L (10-20); BUN (Urea Nitrogen) 29 mg/dL (9.8-20.1); Calc. Creatinine Clearance 10 mL/min (70-130); Calcium 8.5 mg/dL (7.8-10.44); Carbon Dioxide 35 mmol/L (23-31); Chloride 97 mmol/L (98-107); Estimated GFR-MDRD 10; Glucose 63 mg/dL (83-110); Sodium 138 mmol/L (136-145)
--- NOTE | 2019-02-23 07:04 | PDOC.FM ---
- Subjective Subjective: Pt resting in bed this morning. She states she does not feel like anything is wrong. Denies any chest pain. Denies any headache, dizziness. Denies any lightheadness or confusion. Pt denies any SOB. Denies any pain at this time. - Objective Vital Signs & Weight: Vital Signs (12 hours) Temp Pulse Ox 02/23/19 06:59 97.8 F 02/23/19 04:00 97.2 F L 02/23/19 00:00 97.2 F L 02/22/19 20:00 96.8 F L 100 02/22/19 19:15 100 Weight Weight 60.9 kg Most Recent Monitor Data Heart Rate from ECG 62 NIBP 84/51 NIBP BP-Mean 62 Respiration from ECG 17 SpO2 99 I&O: 02/22/19 02/23/19 02/24/19 06:59 06:59 06:59 Intake Total 1190 Output Total 0 Balance 1190 Result Diagrams: 02/23/19 04:16 02/23/19 04:16 EKG Reviewed by me: Yes Radiology Reviewed by me: Yes (Echo shows Pulmonary pressure at 30mmHg, Diastolic dysfunction, ) Radiology: Echo shows severe Tricuspid regurgitation. Phys Exam - Physical Examination Constitutional: NAD HEENT: PERRLA, moist MMs Respiratory: no wheezing some crackles noted bilateraly. A. fib noted, systolic murmur noted. No gallops Gastrointestinal: soft, non-tender, positive bowel sounds some mild distention noted Musculoskeletal: no edema Psychiatric: normal affect, A&O x 3 Skin: no rash, cap refill <2 seconds Dx/Plan (1) End stage renal disease on dialysis Code(s): N18.6 - END STAGE RENAL DISEASE; Z99.2 - DEPENDENCE ON RENAL DIALYSIS Status: Chronic (2) Hypotension after procedure Code(s): I95.81 - POSTPROCEDURAL HYPOTENSION Status: Acute (3) Heart failure Code(s): I50.9 - HEART FAILURE, UNSPECIFIED Status: Acute (4) Ascites Code(s): R18.8 - OTHER ASCITES Status: Acute (5) Afib Code(s): I48.91 - UNSPECIFIED ATRIAL FIBRILLATION Status: Chronic (6) Type 2 diabetes mellitus Status: Chronic (7) Anemia Code(s): D64.9 - ANEMIA, UNSPECIFIED Status: Chronic Qualifiers: Anemia type: due to chronic kidney disease Chronic kidney disease stage: unspecified stage Qualified Code(s): N18.9 - Chronic kidney disease, unspecified; D63.1 - Anemia in chronic kidney disease - Plan Plan: ESRD on HD with volume overload - MWF schedule, however did not receive last saturday due to hypotension - On Midodrine for blood pressure. Possibly could increase due to pt still being hypotensive - Nephrology- Dr. Dye, will follow recs. BP still low. MAP from 58-62 this morning. - Consult cardiology-Dr. Hooker, will follow recs. - Consulted Palliative care Hypotension -On Midodrine. Will await recs on whether she can continue with dialysis. -Possibly increase Midodrine today. Acites -Likely 2/2 portal HTN -Paracenteis cx pending. NGTD HFpEF - Echo 01/16/19: EF 55-60%/. Mild/Mod Pulm HTN 40 mmHg. Severe TR -Echo 02/22/19: EF 55-60%/ Pulm pressure 30 mmHg. Severe TR - HH diet with fluid restriction - Daily wt, Strict I&Os -Holding medications at this time due to hypotension. Pulm HTN Repeat ECHO show improvment from ECHO month ago. Pt denies any acute SOB HTN - Hold home meds due to hypotension Afib with pacemaker - Rate controlled - Continue home meds -Pacemaker will be interogated at recs of cardiology. DMII - Accuchecks ACHS - CC diet - Mild SSI, Hypoglycemic protocol -Holding home medication. Blood glucose low this AM HLD - Continue home meds Depression - Continue home meds Addendum - Attending - Attending Attestation Date/Time: 02/23/19 5040 I personally evaluated the patient and discussed the management with Dr. Boyer. I agree with the History, Examination, Assessment and Plan documented above with any addition or exceptions noted below. Patient overall stable. Continues to have low BP but somewhat improved with midodrine, consider increase. Hold glipizide due to hypoglycemia, and this may suggest a worse prognosis unless her glucose levels increase. Plan for HD this morning with albumin to see if she can tolerate fluid removal. If that is not possible, consider hospice/palliative care.
[2019-02-23] MEDS: Albumin 25% 25 GM/100 ML BOT IVPB SCH (07:07)
[2019-02-23] MEDS: Calcium Acetate 667 MG CAP PO SCH ×3 (08:36→17:01)
[2019-02-23] MEDS: Midodrine HCl 5 MG TAB PO SCH ×3 (08:36→20:07)
[2019-02-23] MEDS: Docusate 100 MG CAP PO SCH ×2 (08:36→20:06)
[2019-02-23] MEDS: Metoclopramide HCl 10 MG TAB PO SCH (08:36)
--- NOTE | 2019-02-23 08:54 | PRG ---
DATE OF SERVICE: 02/23/2019 SUBJECTIVE: The patient is feeling a bit comfortable. She does not need BiPAP last night. OBJECTIVE: VITAL SIGNS: Temperature 97.8, pulse 68, blood pressure 94/50 ranging down to 82/46, and O2 saturation 98%. GENERAL: She appears in no distress. HEENT: Unremarkable. NECK: No JVD. LUNGS: Clear anteriorly. CARDIAC: S1 and S2. Regular. ABDOMEN: Soft. EXTREMITIES: No edema. LABORATORY DATA: White blood cell count 5.1, hematocrit 34.1, and platelet count 136. Sodium 138, potassium 4, chloride 97, CO2 of 35, BUN 29, creatinine 4.3, and glucose 63. ASSESSMENT: 1. Sustained hypotension from chronic congestive heart failure. 2. End-stage renal disease. 3. Ascites. PLAN: 1. I am not sure she is going to be able to tolerate dialysis for this blood pressure. Midodrine was started yesterday, but may end up not being enough. 2. I agree with albumin supplementation. 3. I would leave in ICU until dialysis has been tried. Job ID: [id number]
--- NOTE | 2019-02-23 13:15 | PRG ---
DATE OF SERVICE: 02/23/2019 SUBJECTIVE: This 78-year-old female, being seen for end-stage renal disease. The patient remains hypotensive. The patient denies any complaint. OBJECTIVE: CONSTITUTIONAL: The patient is resting. VITAL SIGNS: Afebrile, pulse , breathing 16, blood pressure was 81/40. GENERAL APPEARANCE AND MENTAL STATUS: Fair. HEAD/NECK: Normocephalic. Atraumatic. EYES: EOMI. No deformity. EARS: Clear. No ulcers. NOSE: Intact. No lesions. MOUTH: Clear. No discharge. THROAT: Clear. No exudate. LUNGS: Clear. No crackles. CARDIAC: S1, S2. No rub. ABDOMEN: Benign. Bowel sounds positive. GENITALIA/RECTUM: Jackson absent. BACK/EXTREMITIES: Edema 0+. NEUROLOGICAL: Alert and motor intact. SKIN: LYMPHATICS: LABORATORY DATA: Labs reviewed. ASSESSMENT AND PLAN: 1. Stage 6 chronic kidney disease. Dialysis will be very difficult due to hypotension. We will discuss with the family. 2. Anemia, stable. 3. Medication based on GFR appropriate. Overall prognosis is poor. Job ID: [id number]
[2019-02-23] MEDS: Atorvastatin Calcium 40 MG TAB PO SCH (20:06)
[2019-02-23] MEDS: Mirtazapine 15 MG TAB PO SCH (20:07)
--- NOTE | 2019-02-24 06:45 | PDOC.FM ---
- Subjective Subjective: Pt resting in bed at this time. Reports being comfortable. Denies any pain at this time. Denies any lightheadness or dizziness. Nurse denies any acute events overnight. No concerns at this time. Nurse reports BP overnight staying stable with range from 80-90 systolic and 40's diastolics. - Objective Vital Signs & Weight: Vital Signs (12 hours) Temp Pulse Ox 02/24/19 04:00 97.8 F 02/24/19 00:00 97.8 F 02/23/19 20:00 98.6 F 100 Weight Weight 55.1 kg Most Recent Monitor Data Heart Rate from ECG 71 NIBP 82/45 NIBP BP-Mean 57 Respiration from ECG 21 SpO2 97 I&O: 02/22/19 02/23/19 02/24/19 06:59 06:59 06:59 Intake Total 1190 615 Output Total 0 0 Balance 1190 615 Result Diagrams: 02/24/19 07:06 02/24/19 07:06 EKG Reviewed by me: Yes Radiology Reviewed by me: Yes (No new imaging to review) Phys Exam - Physical Examination Constitutional: NAD HEENT: PERRLA, moist MMs Neck: no nodes, no JVD, supple Respiratory: no wheezing, no rhonchi, clear to auscultation bilateral Cardiovascular: RRR, no significant murmur Gastrointestinal: positive bowel sounds Pt belly moderately distended. NTTP Pt has some marked ascites Musculoskeletal: no edema, pulses present Neurological: non-focal, moves all 4 limbs Lymphatic: no nodes Psychiatric: normal affect, A&O x 3 (Used nurse at bedside to translate to evaluate) Skin: no rash, cap refill <2 seconds Dx/Plan (1) End stage renal disease on dialysis Code(s): N18.6 - END STAGE RENAL DISEASE; Z99.2 - DEPENDENCE ON RENAL DIALYSIS Status: Chronic (2) Hypotension after procedure Code(s): I95.81 - POSTPROCEDURAL HYPOTENSION Status: Acute (3) Heart failure Code(s): I50.9 - HEART FAILURE, UNSPECIFIED Status: Acute (4) Ascites Code(s): R18.8 - OTHER ASCITES Status: Acute (5) Afib Code(s): I48.91 - UNSPECIFIED ATRIAL FIBRILLATION Status: Chronic (6) Type 2 diabetes mellitus Status: Chronic (7) Anemia Code(s): D64.9 - ANEMIA, UNSPECIFIED Status: Chronic Qualifiers: Anemia type: due to chronic kidney disease Chronic kidney disease stage: unspecified stage Qualified Code(s): N18.9 - Chronic kidney disease, unspecified; D63.1 - Anemia in chronic kidney disease - Plan Plan: ESRD on HD with volume overload - MWF schedule, Pt attempted dialysis yesterday. Was on for 3 hours. Will await recs of nephrology. - On Midodrine for blood pressure. If blood pressure remains unstable for dialysis, could increase. - Nephrology- Dr. Dye, will follow recs. - Consult cardiology-Dr. Hooker, will follow recs. - Consulted Palliative care- Pt possibly considering hospice placement. Hypotension -On Midodrine. -BP has remained stable. Pt received 3 hrs dialysis yesterday. Acites -Likely 2/2 portal HTN -Paracenteis cx pending. NGTD HFpEF - Echo 01/16/19: EF 55-60%/. Mild/Mod Pulm HTN 40 mmHg. Severe TR -Echo 02/22/19: EF 55-60%/ Pulm pressure 30 mmHg. Severe TR - HH diet with fluid restriction - Daily wt, Strict I&Os -Holding medications at this time due to hypotension. Pulm HTN Repeat ECHO show improvment from ECHO month ago. Pt denies any acute SOB HTN - Hold home meds due to hypotension Afib with pacemaker - Rate controlled - Continue home meds -Pacemaker will be interogated per recs of cardiology. DMII - Accuchecks ACHS - CC diet - Mild SSI, Hypoglycemic protocol -Holding home medication. -Pt continues to have periods of hypoglycemia. follow hypoglcyemia protocol for low blood sugars. HLD - Continue home meds Depression - Continue home meds Will continue to have family discussions. After talking with them yesterday and reading palliative care notes it appears if pt BP does not improve and pt is no longer a good canidate for dialysis that we will possibly consider hospice. Will await recs from Dr. Dye today. Addendum - Attending - Attending Attestation Date/Time: 02/24/19 9581 I personally evaluated the patient and discussed the management with Dr. Boyer. I agree with the History, Examination, Assessment and Plan documented above with any addition or exceptions noted below. Patient overall stable. Continues to have low BP but was able to tolerate HD yesterday without fluid remova. Continue to work with family and palliative care for goals of care. Continue Midodrine.
[2019-02-24 07:13] LABS: #Lymphocytes 1.1 thou/uL (1.20-3.40); #Monocytes 0.7 thou/uL (0.11-0.59); #Neutrophils 3.5 thou/uL (1.40-6.50); %Basophils 0.8 % (0.0-1.0); %Eosinophils 0.8 % (0.0-10.0); %Monocytes 12.6 % (0.0-10.0); %Neutrophils 64.9 % (42.0-75.0); Hemoglobin 10.6 g/dL (12.0-16.0); Mean Corpuscular HGB CONC 32.6 g/dL (32.0-36.0); Mean Corpuscular Hemoglobin 35.6 pg (27.0-31.0); Platelet Count 127 thou/uL (130-400); Red Blood Cell (RBC) Count 2.97 mill/uL (4.20-5.40); White Blood Cell (WBC) Count 5.4 thou/uL (4.8-10.8)
[2019-02-24 07:32] LABS: Anion Gap 7 mmol/L (10-20); BUN (Urea Nitrogen) 18 mg/dL (9.8-20.1); Calc. Creatinine Clearance 12 mL/min (70-130); Calcium 8.3 mg/dL (7.8-10.44); Carbon Dioxide 34 mmol/L (23-31); Chloride 99 mmol/L (98-107); Estimated GFR-MDRD 14; Glucose 140 mg/dL (83-110); Potassium 4.3 mmol/L (3.5-5.1); Sodium 136 mmol/L (136-145)
--- NOTE | 2019-02-24 08:18 | PRG ---
DATE OF SERVICE: 02/24/2019 SUBJECTIVE: This patient remains in the ICU. She did undergo dialysis today, but no fluid could be removed. OBJECTIVE: VITAL SIGNS: Temperature is 97.8, pulse is 71, blood pressure is 82/45. HEENT: Bitemporal wasting present. NECK: No JVD. LUNGS: Clear anteriorly. CARDIAC: S1, S2. Regular. 2/6 systolic murmur. ABDOMEN: Soft. EXTREMITIES: No edema. LABORATORY DATA: White blood cell count 5.4, hematocrit 32.5, and platelet count 127. Chemistry was not done. ASSESSMENT: 1. Chronic renal failure requiring hemodialysis. 2. Sustained hypotension with inability to tolerate fluid removal during dialysis. RECOMMENDATIONS: She should be transferred to the floor. It really looks like she is more appropriate for palliative care than anything else. No further Pulmonary recommendations. Job ID: [id number]
[2019-02-24] MEDS: Calcium Acetate 667 MG CAP PO SCH ×3 (09:06→16:34)
[2019-02-24] MEDS: Metoclopramide HCl 10 MG TAB PO SCH (09:06)
[2019-02-24] MEDS: Docusate 100 MG CAP PO SCH ×2 (09:06→20:36)
[2019-02-24] MEDS: Midodrine HCl 5 MG TAB PO SCH ×4 (09:19→20:36)
--- NOTE | 2019-02-24 12:45 | PRG ---
DATE OF SERVICE: 02/24/2019 SUBJECTIVE: This is an 78-year-old female, being seen for end-stage kidney disease. The patient is resting. OBJECTIVE: See above. CONSTITUTIONAL: Awake, alert, in no acute distress. GENERAL APPEARANCE AND MENTAL STATUS: Fair. VITAL SIGNS: Afebrile, pulse 67, breathing 16, blood pressure 89/48. HEAD/NECK: Normocephalic. Atraumatic. EYES: EOMI. No deformity. EARS: Clear. No ulcers. NOSE: Intact. No lesions. MOUTH: Clear. No discharge. THROAT: Clear. No exudate. LUNGS: Clear. No crackles. CARDIAC: S1, S2. No rub. ABDOMEN: Benign. Bowel sounds positive. GENITALIA/RECTUM: Jackson absent. BACK/EXTREMITIES: Edema 0+. NEUROLOGICAL: Alert and motor intact. SKIN: LYMPHATICS: LABORATORY DATA: Reviewed. IMPRESSION AND PLAN: 1. Stage 6 chronic kidney disease. Family wants to stop dialysis and continue hospice. I will order Hospice Consult. 2. Anemia, stable. 3. Medication based on GFR appropriate. I will sign off on this. Job ID: [id number]
[2019-02-24] MEDS: Atorvastatin Calcium 40 MG TAB PO SCH (20:36)
[2019-02-24] MEDS: Mirtazapine 15 MG TAB PO SCH (20:36)
[2019-02-25] MEDS ORDERED: Benzonatate 100 MG CAP PO PRN (00:14)
[2019-02-25 05:19] LABS: #Eosinphils 0.1 thou/uL (0.0-0.7); #Monocytes 0.7 thou/uL (0.11-0.59); #Neutrophils 3.9 thou/uL (1.40-6.50); %Basophils 0.4 % (0.0-1.0); %Eosinophils 1.1 % (0.0-10.0); %Lymphocytes 17.7 % (21.0-51.0); %Monocytes 12.9 % (0.0-10.0); Hemoglobin 10.8 g/dL (12.0-16.0); Mean Corpuscular HGB CONC 31.2 g/dL (32.0-36.0); Mean Corpuscular Hemoglobin 34.7 pg (27.0-31.0); Mean Platelet Volume 8.5 fL (7.4-10.4); Platelet Count 133 thou/uL (130-400); RBC Distribution Width 14.3 % (11.5-14.5); Red Blood Cell (RBC) Count 3.12 mill/uL (4.20-5.40); White Blood Cell (WBC) Count 5.7 thou/uL (4.8-10.8)
[2019-02-25 05:37] LABS: Anion Gap 9 mmol/L (10-20); BUN (Urea Nitrogen) 13 mg/dL (9.8-20.1); Calc. Creatinine Clearance 16 mL/min (70-130); Calcium 8.1 mg/dL (7.8-10.44); Carbon Dioxide 34 mmol/L (23-31); Chloride 100 mmol/L (98-107); Estimated GFR-MDRD 19; Glucose 185 mg/dL (83-110); Potassium 4.6 mmol/L (3.5-5.1); Sodium 138 mmol/L (136-145)
--- NOTE | 2019-02-25 06:47 | PDOC.FM ---
- Subjective Subjective: Pt resting in room. Family present. Daughter states that last night she developed a cough. Reports getting something and it seemed to help with cough. Denies any fever or chills. Otherwise state patient has been resting. Reports pain being well controlled. - Objective MAR Reviewed: Yes Vital Signs & Weight: Vital Signs (12 hours) Temp Pulse Resp BP Pulse Ox 02/24/19 19:06 97.9 F 67 16 95/57 L 99 Weight Weight 65 kg Most Recent Monitor Data Heart Rate from ECG 67 NIBP 89/48 NIBP BP-Mean 61 Respiration from ECG 15 SpO2 97 I&O: 02/23/19 02/24/19 02/25/19 06:59 06:59 06:59 Intake Total 1190 615 240 Output Total 0 0 Balance 1190 615 240 Result Diagrams: 02/25/19 05:04 02/25/19 05:04 Radiology Reviewed by me: Yes (No new imaging to review) Phys Exam - Physical Examination Constitutional: NAD HEENT: PERRLA mucous membranes somewhat dry. Neck: no nodes, no JVD, supple crackles noted bilaterally. Decreased breath sounds present Cardiovascular: RRR, no significant murmur, no rub Paced rhythm Moderately distended. NTTP. Somewhat tight. Fluid wave present Musculoskeletal: no edema, pulses present Deviation from normal: Pt resting. Unable to fully assess. She is pretty somlonent at this time. Skin: no rash, cap refill <2 seconds Dx/Plan (1) End stage renal disease on dialysis Code(s): N18.6 - END STAGE RENAL DISEASE; Z99.2 - DEPENDENCE ON RENAL DIALYSIS Status: Chronic (2) Hypotension after procedure Code(s): I95.81 - POSTPROCEDURAL HYPOTENSION Status: Acute (3) Heart failure Code(s): I50.9 - HEART FAILURE, UNSPECIFIED Status: Acute (4) Ascites Code(s): R18.8 - OTHER ASCITES Status: Acute (5) Afib Code(s): I48.91 - UNSPECIFIED ATRIAL FIBRILLATION Status: Chronic (6) Type 2 diabetes mellitus Status: Chronic (7) Anemia Code(s): D64.9 - ANEMIA, UNSPECIFIED Status: Chronic Qualifiers: Anemia type: due to chronic kidney disease Chronic kidney disease stage: unspecified stage Qualified Code(s): N18.9 - Chronic kidney disease, unspecified; D63.1 - Anemia in chronic kidney disease - Plan Plan: ESRD on HD with volume overload - At this time family has elected to stop dialysis and proceed with hospice care - Nephrology- Dr. Dye, will follow recs. - Consult cardiology-Dr. Hooker, will follow recs. - Consulted Palliative care- at this time awaiting hospice intake Hypotension -On Midodrine. Increased to 10 mg yesterday. BP slightly improved. -BP has remained stable. Pt received 3 hrs dialysis Saturday but no fluid was taken off Acites -Likely 2/2 portal HTN -Paracenteis cx-NGTD HFpEF - Echo 01/16/19: EF 55-60%/. Mild/Mod Pulm HTN 40 mmHg. Severe TR -Echo 02/22/19: EF 55-60%/ Pulm pressure 30 mmHg. Severe TR - HH diet with fluid restriction - Daily wt, Strict I&Os -Holding medications at this time due to hypotension. Pulm HTN Repeat ECHO show improvment from ECHO month ago. Pt denies any acute SOB -Pt having some cough overnight. Likely due to fluid overload. will continue with comfort measures at this time. HTN - Hold home meds due to hypotension Afib with pacemaker - Rate controlled - Continue home meds DMII - Pt going to hospice. Will stop with aggressive blood glucose checks. - CC diet - Mild SSI, Hypoglycemic protocol -Holding home medication. -Pt continues to have periods of hypoglycemia. follow hypoglcyemia protocol for low blood sugars. HLD - Continue home meds Depression - Continue home meds Pt and family have elected to go on Hospice and stop dialysis at this time. Dr. Dye has placed hospice consult. Will await final family decision and await recommendations. Will continue with current tx plan and comfort measures. Addendum - Attending - Attending Attestation Date/Time: 02/25/19 8311 I personally evaluated the patient and discussed the management with Dr. Boyer. I agree with the History, Examination, Assessment and Plan documented above with any addition or exceptions noted below. Patient has declined any further HD sessions or aggressive mgmt. Working with Nephro to obtain Hospice services set up. Comfort measures as needed.
[2019-02-25] MEDS: Metoclopramide HCl 10 MG TAB PO SCH (08:20)
[2019-02-25] MEDS: Midodrine HCl 5 MG TAB PO SCH ×3 (08:20→20:19)
[2019-02-25] MEDS: Calcium Acetate 667 MG CAP PO SCH ×3 (08:21→16:14)
[2019-02-25] MEDS: Docusate 100 MG CAP PO SCH ×2 (08:21→20:19)
[2019-02-25] MEDS: Diabetic Tussin 200 MG/10 ML UDCUP PO PRN (12:26)
[2019-02-25] MEDS: Mirtazapine 15 MG TAB PO SCH (20:19)
[2019-02-25] MEDS: Atorvastatin Calcium 40 MG TAB PO SCH (20:19)
[2019-02-26 05:06] LABS: #Lymphocytes 1.2 thou/uL (1.20-3.40); #Monocytes 0.8 thou/uL (0.11-0.59); %Basophils 0.4 % (0.0-1.0); %Eosinophils 0.8 % (0.0-10.0); %Lymphocytes 19.4 % (21.0-51.0); %Monocytes 13.5 % (0.0-10.0); %Neutrophils 65.9 % (42.0-75.0); Hemoglobin 11.3 g/dL (12.0-16.0); Mean Corpuscular HGB CONC 31.5 g/dL (32.0-36.0); Mean Corpuscular Hemoglobin 34.8 pg (27.0-31.0); Mean Platelet Volume 8.5 fL (7.4-10.4); Platelet Count 140 thou/uL (130-400); RBC Distribution Width 14.1 % (11.5-14.5); Red Blood Cell (RBC) Count 3.24 mill/uL (4.20-5.40); White Blood Cell (WBC) Count 6.1 thou/uL (4.8-10.8)
[2019-02-26 05:24] LABS: Anion Gap 12 mmol/L (10-20); BUN (Urea Nitrogen) 22 mg/dL (9.8-20.1); Calc. Creatinine Clearance 12 mL/min (70-130); Calcium 8.6 mg/dL (7.8-10.44); Carbon Dioxide 31 mmol/L (23-31); Chloride 100 mmol/L (98-107); Estimated GFR-MDRD 12; Glucose 139 mg/dL (83-110); Potassium 4.8 mmol/L (3.5-5.1); Sodium 138 mmol/L (136-145)
--- NOTE | 2019-02-26 07:27 | PDOC.FM ---
- Subjective Subjective: Pt resting in bed. Son at bedside with other family members. Pt and son have no acute complaints at this time. Son states that family has been talking and they are not so sure about hospice at this time. They think she is getting stronger. They think they would like to try dialysis again. Denies any recent fever or chills. Denies any recent chest pain or SOB. - Objective MAR Reviewed: Yes Vital Signs & Weight: Vital Signs (12 hours) Temp Pulse Resp BP Pulse Ox 02/25/19 20:06 98.4 F 72 16 124/69 97 02/25/19 20:00 97 Weight Weight 61.099 kg Most Recent Monitor Data Heart Rate from ECG 67 NIBP 89/48 NIBP BP-Mean 61 Respiration from ECG 15 SpO2 97 I&O: 02/25/19 02/26/19 02/27/19 06:59 06:59 06:59 Intake Total 240 Balance 240 Result Diagrams: 02/26/19 04:29 02/26/19 04:29 Radiology Reviewed by me: Yes (No new imaging to review. ) Phys Exam - Physical Examination Constitutional: NAD HEENT: PERRLA Neck: no nodes, no JVD, supple Respiratory: no rales, no rhonchi Some crackles noted bilaterally. Cardiovascular: RRR, no significant murmur, no rub Gastrointestinal: positive bowel sounds Belly moderately distended. Fluid wave noted. +BS No masses noted Musculoskeletal: pulses present trace edema noted in LE Neurological: non-focal, moves all 4 limbs Psychiatric: normal affect Deviation from normal: Pt resting and somewhat tired at this time. Hard to get full review Skin: no rash, cap refill <2 seconds Dx/Plan (1) End stage renal disease on dialysis Code(s): N18.6 - END STAGE RENAL DISEASE; Z99.2 - DEPENDENCE ON RENAL DIALYSIS Status: Chronic (2) Hypotension after procedure Code(s): I95.81 - POSTPROCEDURAL HYPOTENSION Status: Acute (3) Heart failure Code(s): I50.9 - HEART FAILURE, UNSPECIFIED Status: Acute (4) Ascites Code(s): R18.8 - OTHER ASCITES Status: Acute (5) Afib Code(s): I48.91 - UNSPECIFIED ATRIAL FIBRILLATION Status: Chronic (6) Type 2 diabetes mellitus Status: Chronic (7) Anemia Code(s): D64.9 - ANEMIA, UNSPECIFIED Status: Chronic Qualifiers: Anemia type: due to chronic kidney disease Chronic kidney disease stage: unspecified stage Qualified Code(s): N18.9 - Chronic kidney disease, unspecified; D63.1 - Anemia in chronic kidney disease - Plan Plan: ESRD on HD with volume overload - Now at this time family thinks she is getting stronger and not so sure about going to hospice. They possibly would like to try dialysis. - Nephrology- Dr. Dye, will follow recs. - Consult cardiology-Dr. Hooker, will follow recs. - Consulted Palliative care- Pt not approved for inpatient hospice. Awaiting NH placement. May not want hospice anymore. Will continue to have discussion with family. Hypotension -On Midodrine. Increased to 10 mg. BP improved. -BP has remained stable. Pt received 3 hrs dialysis Saturday but no fluid was taken off Acites -Likely 2/2 portal HTN -Paracenteis cx-NGTD HFpEF - Echo 01/16/19: EF 55-60%/. Mild/Mod Pulm HTN 40 mmHg. Severe TR -Echo 02/22/19: EF 55-60%/ Pulm pressure 30 mmHg. Severe TR - HH diet with fluid restriction - Daily wt, Strict I&Os -Holding medications at this time due to hypotension. Pulm HTN Repeat ECHO show improvment from ECHO month ago. Pt denies any acute SOB HTN - Hold home meds due to hypotension Afib with pacemaker - Rate controlled - Continue home meds DMII - CC diet - Mild SSI, Hypoglycemic protocol -Holding home medication. -Pt continues to have periods of hypoglycemia. follow hypoglcyemia protocol for low blood sugars. HLD - Continue home meds Depression - Continue home meds Family is not sure about going to hospice anymore. They think she is getting stronger and possibly would like to try dialysis again. I will discuss case with Dr. Dye and continue to have discussion with family to come up with plan. Addendum - Attending - Attending Attestation Date/Time: 02/26/19 5918 I personally evaluated the patient and discussed the management with Dr. Boyer. I agree with the History, Examination, Assessment and Plan documented above with any addition or exceptions noted below. Patient here awaiting NH and hospice placement. Family now discussing if they may want to retry HD since BP and strength improved. Await further recs from Nephrology and placement.
[2019-02-26] MEDS: Calcium Acetate 667 MG CAP PO SCH ×3 (08:25→16:38)
[2019-02-26] MEDS: Metoclopramide HCl 10 MG TAB PO SCH (08:25)
[2019-02-26] MEDS: Docusate 100 MG CAP PO SCH ×2 (08:25→20:32)
[2019-02-26] MEDS: Midodrine HCl 5 MG TAB PO SCH ×3 (08:25→20:22)
--- NOTE | 2019-02-26 11:04 | PRG ---
DATE OF SERVICE: 02/26/2019 SUBJECTIVE: The patient was seen at the bedside with family members. Family revoked hospice and wants to try dialysis even though blood pressure is low. Family feels she is more strong. OBJECTIVE: GENERAL: Elderly female, in no apparent distress. VITAL SIGNS: Temperature 97.6, pulse 82, respiratory rate 16, blood pressure 90 /49. MUSCULOSKELETAL: No edema. HEENT: Atraumatic normocephalic Neck: Supple Cardiovascular: S1S2 heard, Rate and rhythm regular Respiratory: Clear to auscultation Gastrointestinal: Abdomen is soft Dermatologic : No skin rash Neurologic: Alert and awake and oriented X3 No focal neurologic deficits. Moving all the extremities. Psychiatric: Mood and affect normal LABORATORY DATA: Potassium is 4.8, BUN is 22, creatinine is 3.6. Hemoglobin is 11.2. ASSESSMENT: End-stage renal disease. PLAN: 1. Is to have dialysis today. The patient is high risk for complication during dialysis given her hypotension. Family understands the risks and will be hard to have ultrafiltration. 2. Edema. We will remove fluid, if tolerated. 3. Anemia, stable. 4. Hypotension making hard for her to have ultrafiltration with dialysis. 5. Family understands the risks, wants to try dialysis today, will have dialysis as tolerated. Job ID: [id number] [facility]
[2019-02-26] MEDS ORDERED: Dicyclomine 10 MG CAP PO SCH (13:30)
--- NOTE | 2019-02-26 13:48 | PDOC.PALPN ---
Palliative Progress Note - Subjective Paitent sleeping comfortably in bed upon arrival. Several family members present. Gibran Snell RN also present for visit. Patient aroused easily, lao speaking only. Did not open eyes at visits, states pain mild to left lower ab. Paitnet RYLAN Clark who is the oldest son was in route to hospital and will follow up once here. Family present wanting to persue dialysis again. Patient assessment performed, spoke with CM and Dr Boyer. Will follow up when Eduardo FAGAN arrives. - Objective Vital Signs: Vital Signs - Most Recent Temp Pulse Resp BP Pulse Ox 98.7 F 89 18 108/65 96 02/26/19 11:48 02/26/19 11:48 02/26/19 11:48 02/26/19 11:48 02/26/19 11:48 - Physical Exam Constitutional: confusion Respiratory: unlabored breathing (wet non productive cough. Diminished sounds to lower lobes.) Cardiovascular: irregular Gastrointestinal: hypoactive bowel sounds (Distended, slight tenderness with palpation to left lower aspect. Tympain on percussion.) Musculoskeletal: no edema (Radial pulses/pedal therady) - Assessment (1) End stage renal disease on dialysis Code(s): N18.6 - END STAGE RENAL DISEASE; Z99.2 - DEPENDENCE ON RENAL DIALYSIS Current Visit: No Status: Chronic Assessment: Decision had been made to stop dialysis secondary to patient inability to tolerate procudure at last attempt, family would like to reconsider and potentially attempt dialysis once more. Comment: Followed up with RYLAN, Palliative Care RN, Jie Wilcox, Dr Boyer and [place]. Discussion with patients son Eduardo who is also [place]. Decision was made to attempt Dialysis once more and determine if patient is able to tolerate. Will alter plan of care as appropriate. CM will continue to attempt to locate a facility where patient can transition to. (2) Ascites Code(s): R18.8 - OTHER ASCITES Current Visit: No Status: Acute Qualifiers: Ascites type: other type Qualified Code(s): R18.8 - Other ascites Assessment: distended ab, tympani on percussion. - Plan Plan:Monitor patient, Dr Boyer to follow. [30] minutes spent on this encounter with >50% of the time in counseling and coordination of care.
[2019-02-26] MEDS ORDERED: Albumin 25% 25 GM/100 ML BOT IVPB SCH (17:00)
[2019-02-26] MEDS: Diabetic Tussin 200 MG/10 ML UDCUP PO PRN (17:42)
[2019-02-26] MEDS: Atorvastatin Calcium 40 MG TAB PO SCH (20:22)
[2019-02-26] MEDS: Tetrahydrozoline 0.05% OPTH 15 ML BOT EA EYE SCH (20:22)
[2019-02-26] MEDS: Mirtazapine 15 MG TAB PO SCH (20:22)
[2019-02-26] MEDS: Acetaminophen 325 MG TAB PO PRN (22:12)
[2019-02-27] MEDS: Diabetic Tussin 200 MG/10 ML UDCUP PO PRN (00:31)
[2019-02-27 06:06] LABS: Band 6 % (5-11); Elliptocytes SLIGHT = 2-5 cells (100X) (0-1/hpf); Eosinophils 1 % (0-10); Hemoglobin 10.8 g/dL (12.0-16.0); Lymphocytes 21 % (21-51); MDiff Complete? YES; Macrocytosis SLIGHT = 6-15 cells (100X) (0-5/hpf); Mean Corpuscular HGB CONC 31.6 g/dL (32.0-36.0); Mean Corpuscular Hemoglobin 35.1 pg (27.0-31.0); Mean Platelet Volume 8.6 fL (7.4-10.4); Monocytes 15 % (0-10); Neutrophil 57 % (42-75); Platelet Count 127 thou/uL (130-400); RBC Distribution Width 13.9 % (11.5-14.5); Red Blood Cell (RBC) Count 3.08 mill/uL (4.20-5.40); White Blood Cell (WBC) Count 5.9 thou/uL (4.8-10.8)
[2019-02-27 06:24] LABS: Anion Gap 11 mmol/L (10-20); BUN (Urea Nitrogen) 17 mg/dL (9.8-20.1); Calc. Creatinine Clearance 15 mL/min (70-130); Calcium 8.8 mg/dL (7.8-10.44); Carbon Dioxide 32 mmol/L (23-31); Chloride 99 mmol/L (98-107); Estimated GFR-MDRD 15; Glucose 141 mg/dL (83-110); Potassium 4.1 mmol/L (3.5-5.1); Sodium 138 mmol/L (136-145)
--- NOTE | 2019-02-27 06:44 | PDOC.FM ---
- Subjective Subjective: Pt resting in bed upon entering room. Pt has no acute complaints this morning. Family by bedside. Denies any acute events overnight. They did report she has been complaining of some nausea after eating. Denies any vomit. Denies any diarrhea/constipation. Reports pain being controlled at this time. Denies any SOB. Reports cough. Pt reports having some dizziness when getting up and moving. - Objective MAR Reviewed: Yes Vital Signs & Weight: Vital Signs (12 hours) Temp Pulse Resp BP Pulse Ox 02/27/19 03:59 100 02/26/19 20:00 100 02/26/19 19:58 97.7 F 75 20 101/63 100 Weight Weight 61.099 kg Most Recent Monitor Data Heart Rate from ECG 67 NIBP 89/48 NIBP BP-Mean 61 Respiration from ECG 15 SpO2 97 I&O: 02/25/19 02/26/19 02/27/19 06:59 06:59 06:59 Intake Total 240 Balance 240 Result Diagrams: 02/27/19 05:16 02/27/19 05:16 Radiology Reviewed by me: Yes (No new imaging to review) Phys Exam - Physical Examination Constitutional: NAD HEENT: PERRLA MM a little dry Neck: no nodes, no JVD, supple, full ROM some mild crackles bilaterally. Breath sound decreased bilaterally Cardiovascular: RRR, no significant murmur, no rub Moderately distended. Somewhat hard. NTTP. BS+. Fluid wave noted Musculoskeletal: pulses present Has +1 pitting edema in LE and UE Neurological: moves all 4 limbs Lymphatic: no nodes Psychiatric: normal affect Deviation from normal: Pt resting at this time. Very somlonent. Hard to arouse Skin: no rash, cap refill <2 seconds Dx/Plan (1) End stage renal disease on dialysis Code(s): N18.6 - END STAGE RENAL DISEASE; Z99.2 - DEPENDENCE ON RENAL DIALYSIS Status: Chronic (2) Hypotension after procedure Code(s): I95.81 - POSTPROCEDURAL HYPOTENSION Status: Acute (3) Heart failure Code(s): I50.9 - HEART FAILURE, UNSPECIFIED Status: Acute (4) Ascites Code(s): R18.8 - OTHER ASCITES Status: Acute Qualifiers: Ascites type: other type Qualified Code(s): R18.8 - Other ascites (5) Afib Code(s): I48.91 - UNSPECIFIED ATRIAL FIBRILLATION Status: Chronic (6) Type 2 diabetes mellitus Status: Chronic (7) Anemia Code(s): D64.9 - ANEMIA, UNSPECIFIED Status: Chronic Qualifiers: Anemia type: due to chronic kidney disease Chronic kidney disease stage: unspecified stage Qualified Code(s): N18.9 - Chronic kidney disease, unspecified; D63.1 - Anemia in chronic kidney disease - Plan Plan: ESRD on HD with volume overload - Pt tried dialysis yesterday. Again did not get much fluid off. - Nephrology- Dr. Dye/Hilario. , will follow recs. - Consult cardiology-Dr. Hooker, will follow recs. - Consulted Palliative care- Pt not approved for inpatient hospice. Awaiting NH placement. They are awaiting reevaluation by inpatient hospice later today. Hypotension -On Midodrine. Increased to 10 mg. BP improved. Pt having some dizziness which is likely side effect. May want to decrease if dizziness worsens. Discussed options with family -BP has remained stable Acites -Likely 2/2 portal HTN -Paracenteis cx-NGTD HFpEF - Echo 01/16/19: EF 55-60%/. Mild/Mod Pulm HTN 40 mmHg. Severe TR -Echo 02/22/19: EF 55-60%/ Pulm pressure 30 mmHg. Severe TR - HH diet with fluid restriction - Daily wt, Strict I&Os -Holding medications at this time due to hypotension. Pulm HTN Repeat ECHO show improvment from ECHO month ago. Pt denies any acute SOB. Having a cough at this time. Has not been able to get much fluid off the last few dialysis sessions HTN - Hold home meds due to hypotension Afib with pacemaker - Rate controlled - Continue home meds DMII - CC diet - Mild SSI, Hypoglycemic protocol -Holding home medication. -Pt continues to have periods of hypoglycemia. follow hypoglcyemia protocol for low blood sugars. HLD - Continue home meds Depression - Continue home meds Pt went through dialysis yesterday. Family reports it going okay. States they did not get much fluid off. Taking to her Son, Eduardo who is the main decision maker says they likely will not continue dialysis. States they will await inpatient hospice reevaluation later today. If not possibly would still like custodial placement. At this time they do not want to take her home on hospice. Will give GERD medicine and Zofran for nausea. Addendum - Attending - Attending Attestation Date/Time: 02/27/19 2086 I personally evaluated the patient and discussed the management with Dr. Boyer. I agree with the History, Examination, Assessment and Plan documented above with any addition or exceptions noted below. Patient overall stable. Tolerated HD yesterday but not able to remove much fluid. Discussion with family today regarding goals of care. Work with CM regarding placement at possible NH for hospice services there.
[2019-02-27] MEDS: Pantoprazole 40 MG GRANULES PACKET PO SCH (08:10)
[2019-02-27] MEDS: Midodrine HCl 5 MG TAB PO SCH ×3 (08:11→20:04)
[2019-02-27] MEDS: Metoclopramide HCl 10 MG TAB PO SCH (08:11)
[2019-02-27] MEDS: Calcium Acetate 667 MG CAP PO SCH ×3 (08:12→16:26)
[2019-02-27] MEDS: Docusate 100 MG CAP PO SCH ×2 (08:12→20:04)
[2019-02-27] MEDS: Tetrahydrozoline 0.05% OPTH 15 ML BOT EA EYE SCH ×2 (08:17→20:06)
--- NOTE | 2019-02-27 11:09 | PRG ---
DATE OF SERVICE: 02/27/2019 SUBJECTIVE: Patient was seen and examined at bedside and overnight events noted. Patient denies any shortness of breath or chest pain or palpitation. No history of nausea or vomiting or diarrhea or fever or chills or cramps. OBJECTIVE: GENERAL: This is a well-built female, in no apparent distress. VITAL SIGNS: Temperature 97.3. Heart rate 71. Respiratory rate 17. Blood pressure 80/36. HEENT: Atraumatic, normocephalic. Oral mucosa is moist NECK: Supple. CARDIOVASCULAR: S1, S2 heard. Rate and rhythm regular. RESPIRATORY: Clear to auscultation. GASTROINTESTINAL: Abdomen is soft. MUSCULOSKELETAL: No tenderness. No edema. DERMATOLOGIC: No skin rash. NEUROLOGIC: Alert and awake and oriented X3. No focal neurologic deficits. Moving all the extremities. PSYCHIATRIC: Mood and affect normal. LABORATORY DATA: Potassium 4.1, BUN is 17, and creatinine is 2.9. ASSESSMENT AND PLAN: 1. End-stage renal disease. Family wanted to try dialysis yesterday and the patient did poorly with dialysis. Her blood pressure was low and was not able to do any significant ultrafiltration. Family is deciding to have hospice and emotional support given and all the questions answered on the hospice. 2. Edema. 3. Anemia. 4. Hypotension. The patient high risk for dialysis and family understands that as family members sat with the patient during dialysis and saw hypotension during dialysis. The patient's family is leaning towards hospice and all the questions answered on hospice arrangements. I will sign off. Please call back with any questions. Job ID: [id number] MTDD
[2019-02-27] MEDS: Acetaminophen 325 MG TAB PO PRN (12:53)
[2019-02-27] MEDS: Mirtazapine 15 MG TAB PO SCH (20:04)
[2019-02-27] MEDS: Atorvastatin Calcium 40 MG TAB PO SCH (20:04)
[2019-02-28 07:07] VITALS: TEMP 98.4
--- NOTE | 2019-02-28 07:09 | PDOC.FM ---
- Subjective Subjective: pt resting comfortably in bed, no acute events overnight, family at bedside - Objective Vital Signs & Weight: Vital Signs (12 hours) Temp Pulse Resp BP Pulse Ox 02/28/19 04:22 97.9 F 90 16 100/64 97 02/28/19 03:52 95 02/28/19 00:32 98.3 F 64 16 98/62 99 02/27/19 20:00 97 02/27/19 19:36 97.7 F 94 16 85/49 L 96 Weight Weight 60.396 kg Most Recent Monitor Data Heart Rate from ECG 67 NIBP 89/48 NIBP BP-Mean 61 Respiration from ECG 15 SpO2 97 I&O: 02/27/19 02/28/19 03/01/19 06:59 06:59 06:59 Intake Total 1420 Balance 1420 Result Diagrams: 02/28/19 06:23 02/28/19 06:23 Phys Exam - Physical Examination Constitutional: NAD HEENT: moist MMs Neck: full ROM Gastrointestinal: no distention Neurological: moves all 4 limbs Psychiatric: normal affect Skin: no rash Dx/Plan (1) Heart failure Code(s): I50.9 - HEART FAILURE, UNSPECIFIED Status: Acute (2) Ascites Code(s): R18.8 - OTHER ASCITES Status: Acute Qualifiers: Ascites type: other type Qualified Code(s): R18.8 - Other ascites (3) Afib Code(s): I48.91 - UNSPECIFIED ATRIAL FIBRILLATION Status: Chronic (4) Anemia Code(s): D64.9 - ANEMIA, UNSPECIFIED Status: Chronic Qualifiers: Anemia type: due to chronic kidney disease Chronic kidney disease stage: unspecified stage Qualified Code(s): N18.9 - Chronic kidney disease, unspecified; D63.1 - Anemia in chronic kidney disease (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 Hooker, will follow recs. - hospice to eval today for home hospice Hypotension -despite midodrine, d/w family -BP has remained stable, reduce monitoring Ascites -Likely 2/2 portal HTN -Paracenteis cx-NGTD HFpEF - Echo 01/16/19: EF 55-60%/. Mild/Mod Pulm HTN 40 mmHg. Severe TR -Echo 02/22/19: EF 55-60%/ Pulm pressure 30 mmHg. Severe TR - HH diet with fluid restriction - Daily wt, Strict I&Os -Hold medications at this time due to hypotension. - Family feels as though pt is agitated with stimulation and monitoring, discussed reduced monitoring and lab draws, family understands and agrees this would be best Pulm HTN - Repeat ECHO show improvment from ECHO month ago. - Pt denies any acute SOB. Having a cough at this time. Has not been able to get much fluid off the last few dialysis sessions HTN - Hold home meds due to hypotension Afib with pacemaker - Rate controlled - Continue home meds DMII - CC diet - Mild SSI, Hypoglycemic protocol -Holding home medication. -Pt continues to have periods of hypoglycemia. follow hypoglcyemia protocol for low blood sugars. - reduce monitoring HLD - Continue home meds Depression - Continue home meds Dispo: DC with home hospice when set up, comfort care Addendum - Attending - Attending Attestation Date/Time: 02/28/19 1126 I personally evaluated the patient at 0715 and discussed the management with Dr. Mari. I agree with the History, Examination, Assessment and Plan documented above with any addition or exceptions noted below. Family has elected for home hospice care. Working to set up equipment at home. Expect d/c this pm or tomorrow.
[2019-02-28 07:18] LABS: Anion Gap 13 mmol/L (10-20); BUN (Urea Nitrogen) 28 mg/dL (9.8-20.1); Calc. Creatinine Clearance 11 mL/min (70-130); Calcium 9.2 mg/dL (7.8-10.44); Carbon Dioxide 30 mmol/L (23-31); Chloride 99 mmol/L (98-107); Estimated GFR-MDRD 11; Glucose 175 mg/dL (83-110); Potassium 4.8 mmol/L (3.5-5.1); Sodium 137 mmol/L (136-145)
[2019-02-28] MEDS: Calcium Acetate 667 MG CAP PO SCH ×2 (07:57→11:31)
[2019-02-28] MEDS: Midodrine HCl 5 MG TAB PO SCH ×2 (07:57→14:39)
[2019-02-28] MEDS: Docusate 100 MG CAP PO SCH (07:58)
[2019-02-28] MEDS: Tetrahydrozoline 0.05% OPTH 15 ML BOT EA EYE SCH (07:58)
[2019-02-28] MEDS: Pantoprazole 40 MG GRANULES PACKET PO SCH (07:58)
[2019-02-28] MEDS: Metoclopramide HCl 10 MG TAB PO SCH (07:58)
[2019-02-28 09:05] LABS: Band 15 % (5-11); Hemoglobin 11.2 g/dL (12.0-16.0); Lymphocytes 23 % (21-51); MDiff Complete? YES; Mean Corpuscular HGB CONC 31.3 g/dL (32.0-36.0); Mean Platelet Volume 8.5 fL (7.4-10.4); Monocytes 12 % (0-10); Neutrophil 50 % (42-75); Ovalocytes MODERATE= 6-15 cells (100X) (0-1/hpf); Platelet Count 142 thou/uL (130-400); White Blood Cell (WBC) Count 5.6 thou/uL (4.8-10.8)
[2019-02-28] MEDS: Diabetic Tussin 200 MG/10 ML UDCUP PO PRN (11:31)
[2019-02-28 15:52] VITALS: BP 103/66
== END 2019-02-28 14:53 | disposition hospice, home (50) | DRG 291 ==
LOC: ERS 12:24 → OBSVTOIN 16:31 → ERHOLD 16:31 → 2NO 18:10 → CCU 02-22 04:54 → T4-B 02-24 10:18
PROVIDERS: ADMIT Internal Medicine; ATTEND Internal Medicine
PROC: 5A1D70Z Performance of Urinary Filtration, Intermittent, Less than 6 Hours Per Day (ICD-10-PCS; principal; 2019-02-21)
PROC: 0W9G3ZZ Drainage of Peritoneal Cavity, Percutaneous Approach (ICD-10-PCS; 2019-02-22)
DX: I13.2 Hypertensive heart and chronic kidney disease with heart failure and with stage 5 chronic kidney disease, or end stage renal disease (principal); N18.6 End stage renal disease; I50.33 Acute on chronic diastolic (congestive) heart failure; J96.01 Acute respiratory failure with hypoxia; R18.8 Other ascites; K76.6 Portal hypertension; D63.1 Anemia in chronic kidney disease; H54.7 Unspecified visual loss; I48.0 Paroxysmal atrial fibrillation; E78.5 Hyperlipidemia, unspecified; E11.22 Type 2 diabetes mellitus with diabetic chronic kidney disease; I27.20 Pulmonary hypertension, unspecified; F32.9 Major depressive disorder, single episode, unspecified; Z51.5 Encounter for palliative care; I95.3 Hypotension of hemodialysis; K21.9 Gastro-esophageal reflux disease without esophagitis; E11.649 Type 2 diabetes mellitus with hypoglycemia without coma; Z99.2 Dependence on renal dialysis; Z95.0 Presence of cardiac pacemaker; Z79.899 Other long term (current) drug therapy; Z79.84 Long term (current) use of oral hypoglycemic drugs
CPT/HCPCS: 36415; 36416; 71045; 80048; 80053; 82550; 82553; 83690; 83735; 83880; 84100; 84484; 85025; 85060; 87070; 87205; 89051; 93005; 93306; 94660; 94760; J1250; J8597; P9047; Q0162